=== PATIENT | female | born 1995 | race Caucasian/White ===

== ENCOUNTER → 2017-09-06 | Outpatient (CLI) | payer OTHER ==
--- NOTE | 2017-09-06 13:22 | DIAGNOSTIC IMAGING REPORT ---
R ANKLE MIN 3 VIEWS ROUTINE CLINICAL HISTORY: M25.571 right ankle pain status post trauma COMPARISON: None. DISCUSSION: No fractures or dislocations are visualized. There are no erosive or destructive changes. IMPRESSION: No fractures or dislocations identified. Electronically signed by: David Horner M.D. 09/06/2017 1:21 PM Dictated Date/Time: 09/06/2017 1:21 PM
== END | disposition home or self-care (01) ==
LOC: C.RAD 12:20
PROVIDERS: ATTEND Physician Assistant Medical
DX: M25.571 Pain in right ankle and joints of right foot (principal)

== ENCOUNTER → 2018-03-27 | Outpatient (CLI) | payer OTHER | END | disposition home or self-care (01) | LOC: C.LABBFT 11:14 | PROVIDERS: ATTEND Physician Assistant Medical | DX: N39.0 Urinary tract infection, site not specified (principal); R39.9 Unspecified symptoms and signs involving the genitourinary system ==

== ENCOUNTER → 2018-03-28 | Outpatient (CLI) | payer OTHER | END | disposition home or self-care (01) | LOC: C.LAB1850 11:41 | PROVIDERS: ATTEND Family Medicine | DX: N39.0 Urinary tract infection, site not specified (principal) ==

== ENCOUNTER 2024-06-03 13:25 | Inpatient (IN) ==
[2024-06-03 13:59] LABS: Basophils # (auto) 0.06 K/uL (0.00-0.20); Basophils % (auto) 0.5 %; Eosinophils # (auto) 0.03 K/uL (0.00-0.50); Eosinophils % (auto) 0.2 %; Hematocrit (blood only) 41.8 % (37.0-47.0); Hemoglobin 14.1 g/dl (12.0-16.0); Immature Granulocytes # (auto) 0.06 K/uL (0.01-0.20); Immature Granulocytes % (auto) 0.5 %; Lymphocytes % (auto) 11.6 %; Mean Corpuscular Hemoglobin 29.9 pg (25.0-34.0); Mean Corpuscular Hgb Conc 33.7 g/dL (32.0-36.0); Mean Corpuscular Volume 88.7 fL (80.0-100.0); Mean Platelet Volume 10.8 fL (9.4-12.4); Monocytes # (auto) 1.35 K/uL (0.11-0.59); Monocytes % (auto) 11.2 %; Neutrophils # (auto) 9.19 K/uL (1.40-6.50); Platelet Count 202 K/uL (130-400); RDW Coefficient of Variation 11.6 % (11.5-14.5); Red Blood Count 4.71 M/uL (4.20-5.40); White Blood Count 12.09 K/ul (4.8-10.8)
[2024-06-03 14:19] LABS: Albumin Level 4.3 gm/dl (3.4-5.0); BUN Creatinine Ratio 13.3 (10-20); Creatinine Clr Calc Pharmacy 109.2 ml/min; Globulin 4.3 gm/dl (2.5-4.0); Potassium 3.4 mmol/L (3.5-5.1); Total Protein 8.6 gm/dl (6.0-8.3)
[2024-06-03 14:49] LABS: Appearance Urine Clear (Clear); Bacteria Urine Automated None Seen (None Seen); Bilirubin Urine Negative (Negative); Blood Urine Trace (Negative); Cast Urine Automated 0-2 /lpf (0-2); Color Urine Yellow; Epithelial Cell Urine Auto 0-2 /hpf (0-2); Glucose Urine UA Negative (Negative); Ketones Urine Negative (Negative); Leukocyte Esterase Urine Negative (Negative); Nitrite Urine Negative (Negative); Protein Urine Negative (Negative); RBC Urine Automated 0-2 /hpf (0-2); Specific Gravity Urine 1.006 (1.000-1.030); Urobilinogen Urine Negative (Negative); WBC Urine Automated 0-5 /hpf (0-5)
--- NOTE | 2024-06-03 15:20 | Emergency Department Note ---
Impression & Plan Pneumonia ED Provider Note NAME: ROBLES CALVO AGE: 28 SEX: F : 1995 ARRIVES VIA: Walk-In INFORMANT: Patient ED PROVIDER(S): QUE Lucas, Little Webber DO CHIEF COMPLAINT: Tachycardia, generalized illness HISTORY OF PRESENT ILLNESS: This 28-year-old female patient presents to the emergency department via private vehicle for evaluation of a multitude of symptoms. She reports since Friday she has had chills, shaking, dizziness, and headache. She reports she has been coughing significantly over the last few days. She reports no chest pain, however states some shortness of breath. She reports she has also had bouts of diarrhea, with darkened urine. She does report a history of a DVT, as well as a PE at the age of 21. She states she is noticing numbness in the tips of her fingers, however denies weakness. She also states she has pain in the right flank that occurred last night and lasted for approximately 20 minutes. She is afebrile, she has tachycardia in the 120s. REVIEW OF SYSTEMS: A review of systems was performed with positives and pertinent negatives listed in the history of present illness. All other systems were reviewed and are negative. ALLERGIES: See below MEDICATIONS: See below PMH: See below PHYSICAL EXAM: VITALS: Vitals are noted on the nurse's note and reviewed by myself. Vital signs stable. GENERAL: 28-year-old female, in no acute distress, nondiaphoretic, well- developed well-nourished. SKIN: The skin was without rashes, erythema, edema, or bruising. HEAD: Normocephalic atraumatic. EYES: Pupils equal round and reactive to light and accommodation. Conjunctivae without injection, sclerae without icterus. Extraocular movements intact. NOSE: Patent, turbinates without inflammation or discharge. No sinus tenderness. MOUTH: Mucous membranes moist. Tonsils are not enlarged. Pharynx without erythema or exudate. Uvula midline. Airway patent. Tongue does not deviate. NECK: Supple without nuchal rigidity. No lymphadenopathy. No thyromegaly. Cervical spine is nontender. No JVD. HEART: Sinus tachycardia without murmurs gallops or rubs. LUNGS: RLL coarse lung sounds, clear otherwise. ABDOMEN: Positive bowel sounds x 4. Soft, nontender, without masses or organomegaly. Griffin sign negative. No guarding or rebound tenderness. MUSCULOSKELETAL: No muscle atrophy, erythema, or edema noted. Full range of motion without joint tenderness in all extremities. No tenderness to palpation. Normal gait. Strength 5/5 throughout. NEURO: Patient was alert and oriented to person place and time. No focal neurological deficits. MEDICAL DECISION MAKING: The patient is a 28-year-old female who arrives to the emergency department for evaluation of the above-stated complaint. A saline lock was established, CBC, CMP, D-dimer, Monospot, upper respiratory viral panel, urinalysis, stool culture were obtained. CBC shows a slight leukocytosis of 12.09, with a stable hemoglobin and hematocrit, CMP shows slight hypokalemia at 3.4, and hyponatremia at 134, D-dimer 1420, Monospot negative, upper respiratory BioFire panel negative. CT imaging of the chest was obtained to rule out pulmonary embolus, which showed no sign of PE, however there is a significant right lower lobe pneumonia. The patient was provided 2 L of normal saline, in an attempt to reduce her tachycardia. The patient was provided oral amoxicillin, as well as azithromycin with initial intentions of discharging the patient home for follow-up on an outpatient basis. Curb 65 score 0. After reevaluation from IV fluids, the patient remains persistently tachycardic. I spoke with her regarding admission versus discharge, and she was agreeable to admission. I do believe the patient requires further workup regarding the persistent tachycardia, and likely IV antibiotics for the significant right lower lobe pneumonia. I spoke with case management who [facility] agree to see the patient regarding admission and accept her under his care. Please refer to his documentation for further patient workup and treatment. DIFFERENTIAL DIAGNOSIS: Reactive airway disease, pneumonia, pneumothorax, COPD, CHF, infections, cardiac ischemia, pulmonary embolism, musculoskeletal, gastrointestinal, as well as other pathologies. Continuous director of cardiac cath lab: Order was placed for continuous director of cardiac cath lab. Patient was placed on the director of cardiac cath lab. Patient was noted to be in sinus tachycardia at an initial rate of 120 bpm. The chart was completed utilizing SLID voice recognition software. Grammatical errors, random word insertions, pronoun errors, and incomplete sentences are an occasional consequence of this system due to software limitations, ambient noise, and hardware issues. Any formal questions or concerns about the content, text, or information contained within the body of this dictation should be directly addressed to the physician for clarification. Past Med/Surg History Problem List Pneumonia (Acute) Anticoagulated on heparin Encounter for health maintenance examination in adult Family history of colorectal cancer Father, diagnosed at age 39yo. UTI (urinary tract infection) History of pulmonary embolism First diagnosed 07/2019 (completed 6M eliquis). Thought to be caused by oral control, now discontinued. History of DVT (deep vein thrombosis) First diagnosed 07/2019 (completed 6M eliquis). Thought to be caused by oral control, now discontinued. Chronic pruritus Lethargy (Acute) Numbness and tingling of both lower extremities (Acute) Numbness and tingling of both upper extremities (Acute) Family history of blood clots Foot laceration (Acute) Medical History Family history of diabetes mellitus Family history of pulmonary embolism Father Surgical History No pertinent past surgical history Family History Mother Alcohol abuse Father Hypertension Grandfather Diabetes Grandmother (Maternal) Breast cancer Denies family history of Ovarian cancer Prostate cancer Colorectal cancer Social History Smoking Status: Never smoker Second Hand Exposure: No; Do You Dip or Chew Tobacco: No; Hx Alcohol Use: Yes Alcohol type: beer Alcohol type Comment: cider Alcohol Intake Frequency: 2-3 x/Week Hx Substance Use: Yes Non-Prescribed Medications: Marijuana Non-Prescribed Medications Comment: process of gettin medical marijuana card Last Used Substance: Days (ago) Last Used Substance Other:: 1 day ago Preferred Language: Luxembourgish Beliefs That Will Affect Care: None marital status: Single Current Living Situation: Other Current Living Situation Comment: roommate current occupational status: employed and student 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 [employer] Feels Safe at Home: Yes Childhood Exposure to Second-Hand Smoke: Yes Dental Care, Regularly: Yes Physical Activity Frequency: Daily Seatbelt Use: always Sunscreen Use: Yes Assistive Devices: Glasses Allergies Allergies Allergy/AdvReac Type Severity Reaction Status Date / Time No Known Allergies Allergy Verified 06/03/24 17:41 Home Meds Home Medications Medication Instructions Recorded Confirmed lamotrigine 25 mg tablet 50 mg PO DAILY 06/03/24 06/03/24 prednisone 10 mg tablet 10 mg PO UD 06/03/24 06/03/24 Previous Rx's Medication Instructions Recorded amoxicillin 500 mg capsule 1,000 mg (2 x 500 mg) PO Q8H 5 06/03/24 days #30 caps azithromycin 250 mg tablet 250 mg PO DAILY 4 days #4 tabs 06/03/24 Results & Data (ED) Vital Signs Vital Signs - 24 hr 06/03/24 13:32 06/03/24 16:43 06/03/24 16:48 Temperature 36.9 C Temperature Source Temporal Artery Scan Pulse Rate 120 H 115 H Pulse Rate [Right Finger] Pulse Rhythm Regular Pulse Strength Normal Respiratory Rate 20 Respiratory Effort / Characteristics Non-Labored Spontaneous Respiratory Depth Normal Respiratory Pattern Blood Pressure 139/86 Blood Pressure [Right Arm] Blood Pressure Mean 103 Blood Pressure Mean [Right Arm] Blood Pressure Position Sitting Pulse Oximetry 96 99 Oxygen Delivery Method Room Air Room Air Sepsis Recent Fever Within 48 Hours No Sepsis New/Unexplained Change in Mental Status N/A Sepsis Action Taken by Nursing No Action Required 06/03/24 16:49 06/03/24 18:30 Temperature Temperature Source Pulse Rate Pulse Rate [Right Finger] 112 H 112 H Pulse Rhythm Pulse Strength Respiratory Rate 24 18 Respiratory Effort / Characteristics Non-Labored Spontaneous Non-Labored Spontaneous Respiratory Depth Normal Normal Respiratory Pattern Regular Regular Blood Pressure Blood Pressure [Right Arm] 113/87 121/85 Blood Pressure Mean Blood Pressure Mean [Right Arm] 95 97 Blood Pressure Position Pulse Oximetry 98 100 Oxygen Delivery Method Room Air Room Air Sepsis Recent Fever Within 48 Hours Sepsis New/Unexplained Change in Mental Status Sepsis Action Taken by Long-Term Medications Current Medication List: was personally reviewed by me Laboratory Data Attestation: I reviewed the patient's lab results. 06/03/24 13:38 06/03/24 13:38 Lab Results 06/03/24 06/03/24 06/03/24 Range/Units 13:38 14:34 16:15 WBC 12.09 H (4.8-10.8) K/ul RBC 4.71 (4.20-5.40) M/uL Hgb 14.1 (12.0-16.0) g/dl Hct 41.8 (37.0-47.0) % MCV 88.7 (80.0-100.0) fL MCH 29.9 (25.0-34.0) pg MCHC 33.7 (32.0-36.0) g/dL RDW Std Deviation 37.0 (36.4-46.3) fL RDW Coeff of Teresa 11.6 (11.5-14.5) % Plt Count 202 (130-400) K/uL MPV 10.8 (9.4-12.4) fL Immature Gran % (Auto) 0.5 % Neut % (Auto) 76.0 % Lymph % (Auto) 11.6 % Sterling % (Auto) 11.2 % Eos % (Auto) 0.2 % Baso % (Auto) 0.5 % Neut # (Auto) 9.19 H (1.40-6.50) K/uL Lymph # (Auto) 1.40 (1.20-3.40) K/uL Sterling # (Auto) 1.35 H (0.11-0.59) K/uL Eos # (Auto) 0.03 (0.00-0.50) K/uL Baso # (Auto) 0.06 (0.00-0.20) K/uL Immature Gran # (Auto) 0.06 (0.01-0.20) K/uL D-Dimer 1420 H* (0-500) ug/L FEU Sodium 134 L (136-145) mmol/L Potassium 3.4 L (3.5-5.1) mmol/L Chloride 100 (98-107) mmol/L Carbon Dioxide 26 (21-32) mmol/L Anion Gap 8 (3-11) BUN 11 (6-23) mg/dl Creatinine 0.83 (0.6-1.2) mg/dl Est Cr Clr Drug Dosing 109.2 ml/min eGFR 98.42 BUN/Creatinine Ratio 13.3 (10-20) Glucose 115 H (70-99(Fasting)) mg/dl Calcium 9.0 (8.6-10.3) mg/dl Total Bilirubin 1.0 (0.2-1.0) mg/dl AST 34 (13-39) U/L ALT 72 H (7-52) U/L Alkaline Phosphatase 60 (34-104) U/L Total Protein 8.6 H (6.0-8.3) gm/dl Albumin 4.3 (3.4-5.0) gm/dl Globulin 4.3 H (2.5-4.0) gm/dl Albumin/Globulin Ratio 1.0 (0.9-2) Urine Color Yellow Urine Appearance Clear (Clear) Urine pH 6.0 (4.5-7.5) Ur Specific [place] 1.006 (1.000-1.030) Urine Protein Negative (Negative) Urine Glucose (UA) Negative (Negative) Urine Ketones Negative (Negative) Urine Blood Trace H (Negative) Urine Nitrite Negative (Negative) Urine Bilirubin Negative (Negative) Urine Urobilinogen Negative (Negative) Ur Leukocyte Esterase Negative (Negative) Urine WBC (Auto) 0-5 (0-5) /hpf Urine RBC (Auto) 0-2 (0-2) /hpf U Hyaline Cast (Auto) 0-2 (0-2) /lpf U Epithel Cells (Auto) 0-2 (0-2) /hpf Urine Bacteria (Auto) None Seen (None Seen) POC Ur Test NEG (NEG) Adenovirus (PCR) Not Detected (NotDetected) B. pertussis DNA (PCR) Not Detected (NotDetected) B.parapertussis DNA PCR Not Detected (NotDetected) C. pneumoniae DNA (PCR) Not Detected (NotDetected) Coronavirus OC43 (PCR) Not Detected (NotDetected) Coronavirus HKU1 (PCR) Not Detected (NotDetected) Coronavirus 229E (PCR) Not Detected (NotDetected) SARS-CoV-2 (PCR) Not Detected (NotDetected) Coronavirus NL63 (PCR) Not Detected (NotDetected) Monoscreen Negative (Negative) Human Metapneumovir PCR Not Detected (NotDetected) Influenza Type A (PCR) Not Detected (NotDetected) Influenza Type B (PCR) Not Detected (NotDetected) M. pneumoniae (PCR) Not Detected (NotDetected) Parainfluenza 1 (PCR) Not Detected (NotDetected) Parainfluenza 2 (PCR) Not Detected (NotDetected) Parainfluenza 3 (PCR) Not Detected (NotDetected) Parainfluenza 4 (PCR) Not Detected (NotDetected) RSV (PCR) Not Detected (NotDetected) Entero/Rhino (PCR) Not Detected (NotDetected) Administered Medications Discontinued Medications Amoxicillin (Amoxicillin 500 Mg Cap) 1,000 mg PO NOW STA; Protocol Stop: 06/03/24 17:20 Last Admin: 06/03/24 18:12 Dose: 1,000 mg Documented By: RENA Azithromycin (Azithromycin 250 Mg Tab) 500 mg PO NOW ONE Stop: 06/03/24 17:20 Last Admin: 06/03/24 18:11 Dose: 500 mg Documented By: RENA Sodium Chloride (Nss) 1,000 mls @ 999 mls/hr IV .Q1H1M ONE Stop: 06/03/24 16:12 Last Infusion: 06/03/24 18:11 Dose: Infused Documented By: Admin: 06/03/24 16:13 Dose: 999 mls/hr Documented By: HAYDEE Sodium Chloride (Nss) 1,000 mls @ 999 mls/hr IV .Q1H1M ONE Stop: 06/03/24 17:29 Last Infusion: 06/03/24 18:21 Dose: Infused Documented By: Admin: 06/03/24 16:56 Dose: 999 mls/hr Documented By: RENA Ioversol (Optiray 320 125ml) 117 ml IV ONCE ONE Stop: 06/03/24 15:44 Last Admin: 06/03/24 15:43 Dose: 117 ml Documented By: MOOSE Imaging Data Attestation: I personally reviewed and interpreted this imaging study as follows: Radiologist's Impression: Abdomen/Pelvis CT 06/03/24 15:[address] WITH IV CONTRAST HISTORY: Acute right-sided flank pain flank pain TECHNIQUE: Multiaxial CT images of the abdomen and pelvis were performed following the IV administration of 117 cc of Optiray, A dose lowering technique was utilized adhering to the principles of ALARA. COMPARISON STUDY: CTA chest of same day FINDINGS: No pneumonia of the right lower lobe with air bronchograms. No free air. Spleen is upper limits of normal in size at 13.9 cm. The liver, gallbladder, pancreas, kidneys, and adrenal glands are within normal limits. No bowel wall thickening or obstruction. Normal appendix. The pelvic organs are unremarkable. A radiodense, shape device is present within the vagina. Mild lumbar levoscoliosis. No suspicious lytic or blastic osseous lesions. IMPRESSION: 1. Right lower lobe pneumonia. 2. No bowel obstruction or bowel wall thickening. Normal appendix. 3. Borderline enlarged spleen. ACT 112: Negative or not required by law. The above report was generated using voice recognition software. It may contain grammatical, syntax or spelling errors. Electronically signed by: Phil Pedraza M.D. 06/03/2024 4:29 PM Chest X-Ray 06/03/24 15:08 XR chest 2V PA/lateral CLINICAL HISTORY: r/o pnx COMPARISON STUDY: Chest CT performed earlier today. FINDINGS: Lung volumes are normal. Right lower lobe consolidation is present. There is no pneumothorax or pleural effusion. Cardiac size is normal. Mediastinal contours are normal. There is no evidence for pulmonary edema. IMPRESSION: Right lower lobe consolidation consistent with pneumonia. ACT 112: Negative or not required by law. Electronically signed by: Francesco Del Toro M.D. 06/03/2024 4:40 PM Chest CTA 06/03/24 15:20 CT ANGIOGRAPHY OF THE CHEST, PULMONARY EMBOLUS PROTOCOL CLINICAL HISTORY: Chills. Fever. COMPARISON STUDY: Chest CT July 16, 2019. TECHNIQUE: Following IV administration of 117 mL of Optiray, helical axial images of the chest were obtained utilizing the pulmonary embolus protocol. Maximal intensity projections and sagittal and coronal reformats were viewed on an independent 3D workstation. IV contrast was administered without complication. Automated exposure control was utilized for the study. A dose lowering technique was utilized adhering to the principles of ALARA. CT DOSE: 1671.07 mGy.cm FINDINGS: No pulmonary emboli are identified although segmental and subsegmental vessels are suboptimally assessed due to suboptimal opacification. There is no thoracic aortic dissection. The size of the heart is normal. There are multiple mildly enlarged right hilar lymph nodes. Index right hilar node on image 124 of 213 measures 2 x 1.4 cm. There is extensive right lower lobe consolidation. No central obstructing mass is present. There is no cavitation. The left lung is clear. There is no pneumothorax or pleural effusion. The spleen is mildly enlarged. IMPRESSION: 1. No pulmonary emboli identified although segmental and subsegmental pulmonary arteries suboptimally assessed. 2. Extensive right lower lobe consolidation suggestive of pneumonia. Radiographic follow-up to ensure resolution is recommended. 3. Mildly enlarged right hilar lymph nodes which are likely reactive. ACT 112: Negative or not required by law. Electronically signed by: Francesco Del Toro M.D. 06/03/2024 4:13 PM Discharge Plan Visit Data Chief Complaint: Illness Stated Complaint: CHILLS, SWEATS, HEADACHE, SHARP PAIN IN BACK ON R ED Provider: [facility] ED Midlevel Provider: Sunshine Beard Discharge Problem: Pneumonia Patient Disposition: Home - Self-Care Condition: Good Discharge Instructions Activity Restrictions/Additional Instructions: You were evaluated in the emergency department for evaluation of right back pain, tachycardia, and chills. CT imaging of the chest is negative for blood clot, however it does show a significant right lower lobe pneumonia. CT imaging of the abdomen and pelvis is negative. Lab work is all reassuring, EKG is as well. You were provided oral amoxicillin, as well as azithromycin here in the emergency department. The remainder the prescriptions were sent to your pharmacy. Please take the entire course of both of these medications. You may take over the counter Tylenol 650mg and Motrin 400mg, every 6 hours as needed for pain. Alternating these medications every 3 hours is most effective for pain control. For example: Tylenol 9am, Motrin 12pm, Tylenol 3pm, Motrin 6pm, etc.. Please only take these medications if you have not been previously informed you should not take them by another provider. Please follow-up with your primary care provider in 1 month for repeat chest x- ray to ensure resolution of the pneumonia. Return to the emergency department for worsening of your current symptoms, or any new concerning signs or symptoms. Thank you for allowing me to participate in your care. Forms Stand Alone Forms: [facility], Important Visit Information Prescriptions Prescriptions: New amoxicillin 500 mg capsule 1,000 mg PO Q8H 5 Days Qty: 30 0RF azithromycin 250 mg tablet 250 mg PO DAILY 4 Days Qty: 4 0RF Rx Instructions: 250 mg orally; No Action prednisone 10 mg tablet 10 mg PO UD lamotrigine 25 mg tablet 50 mg PO DAILY Referrals Referrals: Love,Katherin L., CUSTOMER SERVICE TELLER [Primary Care Provider] - Discharge Problem: Pneumonia Qualifiers: Pneumonia type: due to unspecified organism Laterality: right Lung location: l ower lobe of lung Qualified Code(s): J18.9 - Pneumonia, unspecified organism
[2024-06-03] MEDS: OPTIRAY 320 125ml IV ONE (15:43)
[2024-06-03 15:56] LABS: D Dimer 1420 ug/L FEU (0-500)
[2024-06-03] MEDS: SODIUM CHLORIDE 0.9% 1,000 ML IV ONE ×2 (16:13→16:56)
--- NOTE | 2024-06-03 16:14 | CT Scan Report ---
CT ANGIOGRAPHY OF THE CHEST, PULMONARY EMBOLUS PROTOCOL CLINICAL HISTORY: Chills. Fever. COMPARISON STUDY: Chest CT July 16, 2019. TECHNIQUE: Following IV administration of 117 mL of Optiray, helical axial images of the chest were o btained utilizing the pulmonary embolus protocol. Maximal intensity projections and sagittal and cor onal reformats were viewed on an independent 3D workstation. IV contrast was administered without co mplication. Automated exposure control was utilized for the study. A dose lowering technique was ut ilized adhering to the principles of ALARA. CT DOSE: 1671.07 mGy.cm FINDINGS: No pulmonary emboli are identified although segmental and subsegmental vessels are subopti abby assessed due to suboptimal opacification. There is no thoracic aortic dissection. The size of t he heart is normal. There are multiple mildly enlarged right hilar lymph nodes. Index right hilar nod e on image 124 of 213 measures 2 x 1.4 cm. There is extensive right lower lobe consolidation. No cent ral obstructing mass is present. There is no cavitation. The left lung is clear. There is no pneumoth orax or pleural effusion. The spleen is mildly enlarged. IMPRESSION: 1. No pulmonary emboli identified although segmental and subsegmental pulmonary arteries suboptimally assessed. 2. Extensive right lower lobe consolidation suggestive of pneumonia. Radiographic follow-up to ensure resolution is recommended. 3. Mildly enlarged right hilar lymph nodes which are likely reactive. ACT 112: Negative or not required by law. Electronically signed by: Francesco Del Toro M.D. 06/03/2024 4:13 PM
--- NOTE | 2024-06-03 16:31 | CT Scan Report ---
ABDOMEN AND PELVIS CT WITH IV CONTRAST HISTORY: Acute right-sided flank pain flank pain TECHNIQUE: Multiaxial CT images of the abdomen and pelvis were performed following the IV administrat ion of 117 cc of Optiray, A dose lowering technique was utilized adhering to the principles of ALARA . COMPARISON STUDY: CTA chest of same day FINDINGS: No pneumonia of the right lower lobe with air bronchograms. No free air. Spleen is upper limits of normal in size at 13.9 cm. The liver, gallbladder, pancreas, kidneys, and a drenal glands are within normal limits. No bowel wall thickening or obstruction. Normal appendix. The pelvic organs are unremarkable. A radiodense, shape device is present within the vagina. Mild lumbar levoscoliosis. No suspicious lytic or blastic osseous lesions. IMPRESSION: 1. Right lower lobe pneumonia. 2. No bowel obstruction or bowel wall thickening. Normal appendix. 3. Borderline enlarged spleen. ACT 112: Negative or not required by law. The above report was generated using voice recognition software. It may contain grammatical, syntax o r spelling errors. Electronically signed by: Phil Pedraza M.D. 06/03/2024 4:29 PM
--- NOTE | 2024-06-03 16:41 | XRay Report ---
XR chest 2V PA/lateral CLINICAL HISTORY: r/o pnx COMPARISON STUDY: Chest CT performed earlier today. FINDINGS: Lung volumes are normal. Right lower lobe consolidation is present. There is no pneumothora x or pleural effusion. Cardiac size is normal. Mediastinal contours are normal. There is no evidence for pulmonary edema. IMPRESSION: Right lower lobe consolidation consistent with pneumonia. ACT 112: Negative or not required by law. Electronically signed by: Francesco Del Toro M.D. 06/03/2024 4:40 PM
--- NOTE | 2024-06-03 16:43 | Electrocardiogram Report ---
Test Reason : Blood Pressure : */* mmHG Vent. Rate : 111 BPM Atrial Rate : 111 BPM P-R Int : 116 ms QRS Dur : 80 ms QT Int : 308 ms P-R-T Axes : 43 28 2 degrees QTcB Int : 418 ms Sinus tachycardia Abnormal ECG When compared with ECG of 16-Jul-2019 20:32, No significant change was found Confirmed by Edilberto Ball ([id number]) on 06/03/2024 4:43:42 PM Referred By: REFERRED SELF Confirmed By: Edilberto Ball
[2024-06-03 17:12] LABS: Adenovirus PCR Not Detected (NotDetected); Bordetella parapertussis PCR Not Detected (NotDetected); Bordetella pertussis PCR Not Detected (NotDetected); Chlamydia pneumoniae PCR Not Detected (NotDetected); Coronavirus 229E PCR Not Detected (NotDetected); Coronavirus CoV-2 (COVID19)PCR Not Detected (NotDetected); Coronavirus HKU1 PCR Not Detected (NotDetected); Coronavirus NL63 PCR Not Detected (NotDetected); Coronavirus OC43PCR Not Detected (NotDetected); Human Metapneumovirus PCR Not Detected (NotDetected); Influenza A PCR Not Detected (NotDetected); Influenza B PCR Not Detected (NotDetected); Mycoplasma pneumoniae PCR Not Detected (NotDetected); Parainfluenza Virus 1 PCR Not Detected (NotDetected); Parainfluenza Virus 2 PCR Not Detected (NotDetected); Parainfluenza Virus 3 PCR Not Detected (NotDetected); Parainfluenza Virus 4 PCR Not Detected (NotDetected); Respiratory Syncytial VirusPCR Not Detected (NotDetected); Rhinovirus/Enterovirus PCR Not Detected (NotDetected)
[2024-06-03] MEDS: AZITHROMYCIN 250 MG TAB PO ONE (18:11)
[2024-06-03] MEDS: AMOXICILLIN 500 MG CAP PO STA ×2 (18:12→20:03)
--- NOTE | 2024-06-03 19:48 | History & Physical Report ---
Date of Service June 03, 2024 Assessment & Plan (1) Sepsis: Plan: Secondary to community-acquired pneumonia history of provoked PE/DVT secondary to hormonal Rx status post anticoagulation anxiety/mood disorder, stable Hyperglycemia ro DM Admit to medical telemetry CS, ceftriaxone, doxycycline Lidoderm patch, NSAID for pleurisy Check hemoglobin A1c DVT prophylaxis. Lovenox subcu Full code Text document was generated using [employer] voice recognition software. It may contain grammatical or spelling errors. Kindly contact undersigned for clarification of any documentation item in question. History of Present Illness Chief Complaint: Cough, chest pain, SOB Primary Care Provider: QUE Matias History obtained from patient and records. Medical history significant for history of provoked PE/DVT secondary to hormonal Rx status post anticoagulation, GERD, cervical dysplasia, anxiety/mood disorder. 4 days history of bodyaches, chills, sweating headache and dizziness symptoms. Heartbeat fast at home. Cough symptoms which patient is not able to expectorate fully. Pleuritic right-sided chest pain. Denies aspiration. Possible sick contacts at home. Loose stools noted at home. Amoxicillin and Z-Panda administered at the ER. 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 Allergies Allergy/AdvReac Type Severity Reaction Status Date / Time No Known Allergies Allergy Verified 06/03/24 17:41 Home Medications Medication Instructions Recorded Confirmed Type amoxicillin 500 mg capsule 1,000 mg (2 x 500 mg) PO Q8H 5 06/03/24 Rx days #30 caps azithromycin 250 mg tablet 250 mg PO DAILY 4 days #4 tabs 06/03/24 06/03/24 Rx lamotrigine 25 mg tablet 50 mg PO DAILY 06/03/24 06/03/24 History prednisone 10 mg tablet 10 mg PO UD 06/03/24 06/03/24 History Past Med/Surg History Problem List (Updated 06/04/24 @ 03:52 by Jarett Joyce MD) Sepsis Pneumonia (Acute) Anticoagulated on heparin Encounter for health maintenance examination in adult Family history of colorectal cancer Father, diagnosed at age 39yo. UTI (urinary tract infection) History of pulmonary embolism First diagnosed 07/2019 (completed 6M eliquis). Thought to be caused by oral control, now discontinued. History of DVT (deep vein thrombosis) First diagnosed 07/2019 (completed 6M eliquis). Thought to be caused by oral control, now discontinued. Chronic pruritus Lethargy (Acute) Numbness and tingling of both lower extremities (Acute) Numbness and tingling of both upper extremities (Acute) Family history of blood clots Foot laceration (Acute) Medical History Family history of diabetes mellitus Family history of pulmonary embolism Father Surgical History No pertinent past surgical history Family History Mother Alcohol abuse Father Hypertension Grandfather Diabetes Grandmother (Maternal) Breast cancer Denies family history of Ovarian cancer Prostate cancer Colorectal cancer Social History Smoking Status: Never smoker Second Hand Exposure: No; Do You Dip or Chew Tobacco: No; Hx Alcohol Use: Yes Alcohol type: hard liquor Alcohol type Comment: cider Alcohol Intake Frequency: 2-3 x/Week Hx Substance Use: Yes Non-Prescribed Medications: Marijuana Non-Prescribed Medications Comment: process of gettin medical marijuana card Last Used Substance: Days (ago) Last Used Substance Other:: 1 day ago Substance Use Type Other:: Occasionak Preferred Language: Haitian Communication Ability: Effective 3D Technologist Required: No Beliefs That Will Affect Care: None marital status: Single Current Living Situation: Significant Other Current Living Situation Comment: roommate current occupational status: employed and student 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 [employer] Other Information That Helps Us Care for You: No Feels Safe at Home: Yes Safety Concerns: Feels Safe At This Time Childhood Exposure to Second-Hand Smoke: Yes Dental Care, Regularly: Yes Physical Activity Frequency: Daily Seatbelt Use: always Sunscreen Use: Yes Assistive Devices: None Review of Systems Review of Systems: As per HPI, all other systems reviewed and negative Physical Exam Physical Exam: GENERAL: Comfortable, pleasant, obese, no respiratory distress SKIN: Normal color, warm HEENT: [place] palpebral conjunctivae, no ptosis, dry buccal mucosa NECK : Supple, no tenderness CHEST : Decreased breath sounds, minimal right chest wall tenderness HEART : Tachycardic, no obvious murmurs ABDOMEN: Some distention, nontender EXTREMITIES : Minimal LE swelling, no LE tenderness, no other conspicuous deformities noted NEUROLOGIC : Coherent, no facial asymmetry, no other gross focality Results & Data Results & Data Vital Signs (Past 12 Hours) Vital Signs Temp Pulse Pulse Resp BP BP Pulse Ox 06/03/24 18:30 112 H 18 121/85 100 06/03/24 16:49 112 H 24 113/87 98 06/03/24 16:48 99 06/03/24 16:43 115 H 06/03/24 13:32 36.9 C 120 H 20 139/86 96 O2 Del Method 06/03/24 18:30 Room Air 06/03/24 16:49 Room Air 06/03/24 16:48 Room Air 06/03/24 16:43 06/03/24 13:32 Room Air Laboratory Results Laboratory Results WBC 12.09 K/ul (4.8-10.8) H 06/03/24 13:38 RBC 4.71 M/uL (4.20-5.40) 06/03/24 13:38 Hgb 14.1 g/dl (12.0-16.0) 06/03/24 13:38 Hct 41.8 % (37.0-47.0) 06/03/24 13:38 MCV 88.7 fL (80.0-100.0) 06/03/24 13:38 MCH 29.9 pg (25.0-34.0) 06/03/24 13:38 MCHC 33.7 g/dL (32.0-36.0) 06/03/24 13:38 RDW Std Deviation 37.0 fL (36.4-46.3) 06/03/24 13:38 RDW Coeff of Teresa 11.6 % (11.5-14.5) 06/03/24 13:38 Plt Count 202 K/uL (130-400) 06/03/24 13:38 MPV 10.8 fL (9.4-12.4) 06/03/24 13:38 Immature Gran % (Auto) 0.5 % 06/03/24 13:38 Neut % (Auto) 76.0 % 06/03/24 13:38 Lymph % (Auto) 11.6 % 06/03/24 13:38 Izard % (Auto) 11.2 % 06/03/24 13:38 Eos % (Auto) 0.2 % 06/03/24 13:38 Baso % (Auto) 0.5 % 06/03/24 13:38 Neut # (Auto) 9.19 K/uL (1.40-6.50) H 06/03/24 13:38 Lymph # (Auto) 1.40 K/uL (1.20-3.40) 06/03/24 13:38 Izard # (Auto) 1.35 K/uL (0.11-0.59) H 06/03/24 13:38 Eos # (Auto) 0.03 K/uL (0.00-0.50) 06/03/24 13:38 Baso # (Auto) 0.06 K/uL (0.00-0.20) 06/03/24 13:38 Immature Gran # (Auto) 0.06 K/uL (0.01-0.20) 06/03/24 13:38 D-Dimer 1420 ug/L FEU (0-500) H* 06/03/24 13:38 Sodium 134 mmol/L (136-145) L 06/03/24 13:38 Potassium 3.4 mmol/L (3.5-5.1) L 06/03/24 13:38 Chloride 100 mmol/L (98-107) 06/03/24 13:38 Carbon Dioxide 26 mmol/L (21-32) 06/03/24 13:38 Anion Gap 8 (3-11) 06/03/24 13:38 BUN 11 mg/dl (6-23) 06/03/24 13:38 Creatinine 0.83 mg/dl (0.6-1.2) 06/03/24 13:38 Est Cr Clr Drug Dosing 109.2 ml/min 06/03/24 13:38 eGFR 98.42 06/03/24 13:38 BUN/Creatinine Ratio 13.3 (10-20) 06/03/24 13:38 Glucose 115 mg/dl (70-99(Fasting)) H 06/03/24 13:38 Calcium 9.0 mg/dl (8.6-10.3) 06/03/24 13:38 Total Bilirubin 1.0 mg/dl (0.2-1.0) 06/03/24 13:38 AST 34 U/L (13-39) 06/03/24 13:38 ALT 72 U/L (7-52) H 06/03/24 13:38 Alkaline Phosphatase 60 U/L (34-104) 06/03/24 13:38 Total Protein 8.6 gm/dl (6.0-8.3) H 06/03/24 13:38 Albumin 4.3 gm/dl (3.4-5.0) 06/03/24 13:38 Globulin 4.3 gm/dl (2.5-4.0) H 06/03/24 13:38 Albumin/Globulin Ratio 1.0 (0.9-2) 06/03/24 13:38 Urine Color Yellow 06/03/24 14:34 Urine Appearance Clear (Clear) 06/03/24 14:34 Urine pH 6.0 (4.5-7.5) 06/03/24 14:34 Ur Specific [place] 1.006 (1.000-1.030) 06/03/24 14:34 Urine Protein Negative (Negative) 06/03/24 14:34 Urine Glucose (UA) Negative (Negative) 06/03/24 14:34 Urine Ketones Negative (Negative) 06/03/24 14:34 Urine Blood Trace (Negative) H 06/03/24 14:34 Urine Nitrite Negative (Negative) 06/03/24 14:34 Urine Bilirubin Negative (Negative) 06/03/24 14:34 Urine Urobilinogen Negative (Negative) 06/03/24 14:34 Ur Leukocyte Esterase Negative (Negative) 06/03/24 14:34 Urine WBC (Auto) 0-5 /hpf (0-5) 06/03/24 14:34 Urine RBC (Auto) 0-2 /hpf (0-2) 06/03/24 14:34 U Hyaline Cast (Auto) 0-2 /lpf (0-2) 06/03/24 14:34 U Epithel Cells (Auto) 0-2 /hpf (0-2) 06/03/24 14:34 Urine Bacteria (Auto) None Seen (None Seen) 06/03/24 14:34 POC Ur Test NEG (NEG) 06/03/24 14:34 Adenovirus (PCR) Not Detected (NotDetected) 06/03/24 16:15 B. pertussis DNA (PCR) Not Detected (NotDetected) 06/03/24 16:15 B.parapertussis DNA PCR Not Detected (NotDetected) 06/03/24 16:15 C. pneumoniae DNA (PCR) Not Detected (NotDetected) 06/03/24 16:15 Coronavirus OC43 (PCR) Not Detected (NotDetected) 06/03/24 16:15 Coronavirus HKU1 (PCR) Not Detected (NotDetected) 06/03/24 16:15 Coronavirus 229E (PCR) Not Detected (NotDetected) 06/03/24 16:15 SARS-CoV-2 (PCR) Not Detected (NotDetected) 06/03/24 16:15 Coronavirus NL63 (PCR) Not Detected (NotDetected) 06/03/24 16:15 Monoscreen Negative (Negative) 06/03/24 13:38 Human Metapneumovir PCR Not Detected (NotDetected) 06/03/24 16:15 Influenza Type A (PCR) Not Detected (NotDetected) 06/03/24 16:15 Influenza Type B (PCR) Not Detected (NotDetected) 06/03/24 16:15 M. pneumoniae (PCR) Not Detected (NotDetected) 06/03/24 16:15 Parainfluenza 1 (PCR) Not Detected (NotDetected) 06/03/24 16:15 Parainfluenza 2 (PCR) Not Detected (NotDetected) 06/03/24 16:15 Parainfluenza 3 (PCR) Not Detected (NotDetected) 06/03/24 16:15 Parainfluenza 4 (PCR) Not Detected (NotDetected) 06/03/24 16:15 RSV (PCR) Not Detected (NotDetected) 06/03/24 16:15 Entero/Rhino (PCR) Not Detected (NotDetected) 06/03/24 16:15 Impressions Abdomen/Pelvis CT 06/03/24 15:[address] WITH IV CONTRAST HISTORY: Acute right-sided flank pain flank pain TECHNIQUE: Multiaxial CT images of the abdomen and pelvis were performed following the IV administration of 117 cc of Optiray, A dose lowering technique was utilized adhering to the principles of ALARA. COMPARISON STUDY: CTA chest of same day FINDINGS: No pneumonia of the right lower lobe with air bronchograms. No free air. Spleen is upper limits of normal in size at 13.9 cm. The liver, gallbladder, pancreas, kidneys, and adrenal glands are within normal limits. No bowel wall thickening or obstruction. Normal appendix. The pelvic organs are unremarkable. A radiodense, shape device is present within the vagina. Mild lumbar levoscoliosis. No suspicious lytic or blastic osseous lesions. IMPRESSION: 1. Right lower lobe pneumonia. 2. No bowel obstruction or bowel wall thickening. Normal appendix. 3. Borderline enlarged spleen. ACT 112: Negative or not required by law. The above report was generated using voice recognition software. It may contain grammatical, syntax or spelling errors. Electronically signed by: Phil Pedraza M.D. 06/03/2024 4:29 PM Chest X-Ray 06/03/24 15:08 XR chest 2V PA/lateral CLINICAL HISTORY: r/o pnx COMPARISON STUDY: Chest CT performed earlier today. FINDINGS: Lung volumes are normal. Right lower lobe consolidation is present. There is no pneumothorax or pleural effusion. Cardiac size is normal. Mediastinal contours are normal. There is no evidence for pulmonary edema. IMPRESSION: Right lower lobe consolidation consistent with pneumonia. ACT 112: Negative or not required by law. Electronically signed by: Francesco Del Toro M.D. 06/03/2024 4:40 PM Chest CTA 06/03/24 15:20 CT ANGIOGRAPHY OF THE CHEST, PULMONARY EMBOLUS PROTOCOL CLINICAL HISTORY: Chills. Fever. COMPARISON STUDY: Chest CT July 16, 2019. TECHNIQUE: Following IV administration of 117 mL of Optiray, helical axial images of the chest were obtained utilizing the pulmonary embolus protocol. Maximal intensity projections and sagittal and coronal reformats were viewed on an independent 3D workstation. IV contrast was administered without complication. Automated exposure control was utilized for the study. A dose lowering technique was utilized adhering to the principles of ALARA. CT DOSE: 1671.07 mGy.cm FINDINGS: No pulmonary emboli are identified although segmental and subsegmental vessels are suboptimally assessed due to suboptimal opacification. There is no thoracic aortic dissection. The size of the heart is normal. There are multiple mildly enlarged right hilar lymph nodes. Index right hilar node on image 124 of 213 measures 2 x 1.4 cm. There is extensive right lower lobe consolidation. No central obstructing mass is present. There is no cavitation. The left lung is clear. There is no pneumothorax or pleural effusion. The spleen is mildly enlarged. IMPRESSION: 1. No pulmonary emboli identified although segmental and subsegmental pulmonary arteries suboptimally assessed. 2. Extensive right lower lobe consolidation suggestive of pneumonia. Radiographic follow-up to ensure resolution is recommended. 3. Mildly enlarged right hilar lymph nodes which are likely reactive. ACT 112: Negative or not required by law. Electronically signed by: Francesco Del Toro M.D. 06/03/2024 4:13 PM Diagnostic Findings EKG as per my interpretation : rate 110, sinus tachycardia, normal axis, nonspecific T wave abnormalities
[2024-06-03] MEDS: POTASSIUM CHLORIDE PWD 20 MEQ PACK PO STA (20:14)
[2024-06-03] MEDS: ACETAMINOPHEN 1,000 MG/100 ML VIAL IV STA (20:14)
[2024-06-03] MEDS ORDERED: hydrOXYzine HCl 25 MG TAB PO PRN (20:24)
[2024-06-03] MEDS ORDERED: PROMETHAZINE 12.5 MG/50.5 ML BAG IV PRN (20:24)
[2024-06-03] MEDS ORDERED: oxyCODONE HCL IR 5 MG TAB (IMMEDIATE RELEASE) PO PRN (20:24)
[2024-06-03] MEDS ORDERED: IBUPROFEN 200 MG TAB PO PRN (20:24)
[2024-06-03 20:26] LABS: Thyroid Stimulating Hormone 2.891 uIu/ml (0.300-4.500)
[2024-06-03] MEDS: cefTRIAXone SODIUM 2,000 MG/50 ML BAG IV STA (20:33)
[2024-06-03] MEDS: NSS + 20MEQ KCL 20 MEQ/1,000 ML BAG IV STA (20:48)
[2024-06-03] MEDS: SODIUM CHLORIDE 0.9% 1,000 ML IV SCH (21:09)
[2024-06-03] MEDS: lamoTRIgine 25 MG TAB PO SCH (22:54)
[2024-06-03] MEDS: guaiFENesin 600 MG TABCR PO SCH (22:54)
[2024-06-03 23:32] LABS: Adenovirus F 40/41 PCR Not Detected (NotDetected); Astrovirus PCR Not Detected (NotDetected); Campylobacter PCR Not Detected (NotDetected); Cryptosporidium PCR Not Detected (NotDetected); Cyclospora cayetanensis PCR Not Detected (NotDetected); Entamoeba histolytica PCR Not Detected (NotDetected); Enteroaggregative E.coli(EAEC) Not Detected (NotDetected); Enteropathogenic E.coli (EPEC) Not Detected (NotDetected); Enterotoxigenic E.coli (ETEC) Not Detected (NotDetected); Giardia lamblia PCR Not Detected (NotDetected); Norovirus GI/GII PCR Not Detected (NotDetected); Plesiomonas shigelloides PCR Not Detected (NotDetected); Rotavirus A PCR Not Detected (NotDetected); Salmonella PCR Not Detected (NotDetected); Sapovirus PCR Not Detected (NotDetected); Shiga-like Toxin E.coli (STEC) Not Detected (NotDetected); Shigella/Enteroinvasive E.coli Not Detected (NotDetected); Vibrio cholerae PCR Not Detected (NotDetected); Vibrio species PCR Not Detected (NotDetected); Yersinia enterocolitica PCR Not Detected (NotDetected)
[2024-06-04] MEDS: NSS + 20MEQ KCL 20 MEQ/1,000 ML BAG IV ONE (01:21)
[2024-06-04] MEDS: ACETAMINOPHEN 325 MG TAB PO PRN (01:53)
--- OUTSIDE RECORDS SUMMARY | 2024-06-04 02:28 | External Medical Summary | Summary of Care ---
Author Name Unknown Organization [facility] Address [address] [place] [address] Phone [phone] Care Team Providers Care Analyst Business Analysis Name Role Phone Jayde Pedroza Primary Care Provider Reason for Visit * Reason Comments Acute Encounter Details Date Type Department Care Team (Late st Contact Info) Description 06/02/2024 10:00 AM EDT Telemedicine [address] [place] [id number] Bushra Glez PA-C [facility] [address] [place] [address] [phone] Viral illness* Allergies Active Allergy Reactions Criticality Noted Date Comments Pollen Other (Please comment) High 01/09/2015 Red eyes documented as of this encounter (statuses as of 06/02/2024) Medications Medication Sig Dispensed Refills Start Date End Date Status Breast Pump Electric bilateral pump 1 Each 06/29/2021 Active Additional Information Patient not taking.Reported on 06/02/2024 lamoTRIgine 25 MG Oral Tablet (LaMICtal) Take 2 Tablets by mouth in the morning. 05/19/2024 Active hydrOXYzine Pamoate 25 MG Oral Capsule (Vistaril) Take 1 Capsule by mouth. 04/19/2024 Active predniSONE 10 MG Oral Tablet (Deltasone)Indicati ons:Viral illness Take 5 tabs for 2 days, 4 tabs for 2 days, 3 tabs for 2 days, 2 tabs for 2 days 1 tab for 2 days 30 Tablet 06/02/2024 Active documented as of this encounter (statuses as of 06/02/2024) Active Problems Problem Noted Date Diagnosed Date Skin lesion 02/27/2024 Encounter for tubal ligation counseling 01/29/20 24 Streptococcus C 08/01/2023 Need for influenza vaccination 08/01/2023 Malaise and fatigue 09/20/2022 Polyarthralgia 09/20/2022 Amenorrhea 06/12/2022 Nausea without vomiting 06/12/2022 Gastroesophageal reflux disease without esophagi tis 06/12/2022 Paresthesia 06/12/2022 REMI (generalized anxiety disorder) 04/04/2022 PTSD (post-traumatic stress disorder) 04/04/2022 Major depressive disorder, recurrent, mild 03/20 Personal history of venous thrombosis and emboli sm 02/23/2021 documented as of this encounter (statuses as of 06/02/2024) Resolved Problems Problem Noted Date Diagnosed Date Resolved Date (normal spontaneous vaginal delivery) 09/21/2021 10/29/2021 Choroid plexus cysts, , affecting care of mother, antepartum 04/27/2021 08/08/2021 Last Assessment & Plan: Resolved. Maternal varicella, non-immune 03/23/2021 10/29/2021 High-risk , first trimester 03/01/2021 03/23/2021 Genetic screening 03/01/2021 08/23/2021 Overview: I reviewed cffDNA screening which resulted in low risk for aneuploidy on 02/23/21. Last Assessment & Plan: Reviewed information about cffDNA with the patient, explained conditions that are screened for. Those conditions are trisomy 21 (Down syndrome), trisomy 18, trisomy 13, syndrome, triploidy, and sex chromosome abnormalities such as monosomy X (Lemons syndrome), and sex chromosome trisomies (triple X, Klinefelters syndrome, XYY).The detection rate for these chromosome conditions range from 92-99%. Patient understands that it is a screening test and it is not diagnostic. A high risk result indicates that there is an increased suspicion for the chromosome abnormality listed, but it is not a diagnosis. Depression affecting 03/01/2021 10/29/2021 Overview: Patient reports she follows with a counselor for anxiety and depression. She discontinued medical marijuana upon discovery of . She reports a stable mood at this time and denies any recent signs/symptoms of depression, suicidal or homicidal ideations Last Assessment & Plan: Reviewed with patient that women with a history of anxiety/depression are at risk for recurrence both during and/or the period. Discussed with patient that anxiety/depression can and should be treated during when the benefits of treatment outweigh potential risks. 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 During that time she was more immobile as she had injury to her foot and was using crutches. She follows with hematology at [facility] and reports she completed full thrombophilia panel which was negative (we do not have these records for review). Patient is currently managed on prophylactic Lovenox 40 mg daily and was last evaluated by parcel post order clerk on 02/28/21. Last Assessment & Plan: Patient is currently managed on prophylactic Lovenox 40 mg daily and was last evaluated by parcel post order clerk on 02/28/21. We discussed the plan to follow growth serially. Routine child health exam documented as of this encounter (statuses as of 06/02/2024) Immunizations Name Administration Dates Next Due COVID-19 mRNA, LNP-s, No Pre serve, 2-Dose Series (Luminescent) 05/09/2021,04/10/2021 HPV Vaccine, 4-Valent 03/25/2009,07/06/2007,12/2006 Meningococcal Conjugate Vacc ine (Menactra/Menveo) 12/02/2011,05/06/2007 Seasonal Influenza, PF, 6 M & above, IM , (FluLaval or Fluzone) 08/01/2023,07/03/2022 TDAP (age 10 and older)(Boostrix) 06/22/2021,12/2013 TDAP, Age 7 and older, IM (Adacel) 05/06/2007 Varicella Vaccine (Chicken Pox) 03/25/2009 documented as of this encounter Social History Tobacco Use Types Packs/Day Years Used Date Smoking Tobacco: Never Smokeless Tobacco: Never Alcohol Use Standard Drinks/Week Comments Yes 0 (1 standard drink = 0.6 oz pur e alcohol) OCC. AUDIT-C Answer Date Recorded Frequency of Alcohol Consumption Monthly or less 2020 Average Number of Drinks Not on file 021 Frequency of Binge Drinking Not on file 10/31 PHQ-2 Answer Date Recorded PHQ-2 Score 2 10/26/2019 Hunger Vital Sign Answer Date Recorded Within the past 12 months, y ou worried that your food would run out before you got the money to buy more. Never true 01/20/20 24 Within the past 12 months, t he food you bought just didn't last and you didn't have money to get more. Never true 01/20/2024 [place] Depression Scale Answer Date Recorded [place] Depression Scale Total 9 10/29/2021 The thought of harming myself has occurred to me . Never 10/29/2021 Childcare Answer Date Recorded Do you feel overwhelmed with taking care of a child, family member or friend? No 01/20/2024 Does your family need help f inding childcare? (Household - for ages 0-17 years) Not on file 01/20/2024 Clothing Answer Date Recorded Have you been unable to get clothing when it was really needed? No 01/20/2024 Is your family able to get c lothes or diapers when needed? (Household - for ages 0-17 years) Not on file 01/20/2024 Personal Safety Answer Date Recorded Do you feel unsafe or have concerns for your saf ety? No 01/20/2024 Do you have concerns for you r family's safety? (Household - for ages 0-17 years) Not on file 01/20/2024 Utilities Answer Date Recorded Do you have trouble paying y our heating, water, or electric bill? No 01/20/2024 Is your family able to pay t he heat, water, or electric bill? (Household - for ages 0-17 years) Not on file 01/20/2024 Does your family have access to good internet? (Household - for ages 0-17 years) Not on file 01/20/2024 Employment Status Answer Date Recorded Are you unemployed or without regular income? No 01/20/2024 Does the household have a re gular source of income? (Household - for ages 0-17 years) Not on file 01/20/2024 Social Connections Answer Date Recorded How often do you feel lonely or isolated from those around you? Sometimes 01/20/2024 Financial Resource Strain Answer Date R ecorded Do you have any trouble payi ng for your medications, or do you think you might in the future? No 01/20/2024 Does your family have troubl e paying for medicine? (Household - for ages 0-17 years) Not on file 01/20/2024 Transportation Needs Answer Date Record ed READ ONLY Do you have troubl e getting a ride to medical visits or work? Never True 01/20/2024 Does your family have a hard time getting a ride to doctors visits? (Household - for ages 0-17 years) Not on file 01/20/2024 Has lack of transportation k ept you from medical appointments, meetings, work, or from getting things needed for daily living? Check all that apply. (Adult - for ages 18 years and over) Not on file 01/20/2024 Do you (or your family) have trouble finding or paying for a ride (transportation)? (Household - for ages 0-17 years) Not on file 01/20/2024 Housing Stability Answer Date Recorded Do you currently live in a s helter or have no steady place to sleep at night? No 01/20/2024 READ ONLY Do you think you a re at risk of becoming homeless? No 01/20/2024 Does your family worry about paying for your home or becoming homeless? (Household - for ages 0-17 years) Not on file 0 01/20/2024 Are you homeless or worried that you might be in the future? (Adult - for ages 18 years and over) Not on file Are you (or your family) smooth eless or worried that you might be in the future? (Household - for ages 0-17 years) Not on file Food Insecurity Answer Date Recorded Do you need food for this week? No 01/20/2024 Are you able to get enough f ood for your family? (Household - for ages 0-17 years) Not on file 01/20/2024 Does your family need food t his week? (Household - for ages 0-17 years) Not on file 01/20/2024 Do you always have enough fo od for your family? (Household - for ages 0-17 years) Not on file 01/20/2024 Sex and Gender Information Value Date Recorded Sex Assigned at Female 06/14/2021 5:03 PM EDT Gender Identity Female 06/14/2021 5:03 PM EDT Sexual Orientation Straight 06/14/2021 5: 03 PM EDT Job Start Date Occupation Industry Not on file Not on file Not on file documented as of this encounter Progress Notes * Bushra Glez PA-C - 06/02/2024 10:17 AM EDT Patient location: HOME. I was in a hospital or clinic location. After connecting through [email or web address],patient was verified with two unique identifiers. Patient (or authorized legal customer field representative) was then informed that this was a Telemedicine visit and being conducted confidentially over secure lines. Methods to assure confidentiality were taken. Patient acknowledged consent and understanding of pr ivacy and security of the Telemedicine visit. The patient agreed to participate. Nursing Notes: Janet Valerio CCMA 06/02/24 1012 Signed Chief Complaint Patient presents with Acute Pt is here through video today c/o body aches, chills, profuse sweating, headache, dizziness and tachycardia x 3-4 days. Pt used dayquil and nyquil and each time that is when the sweat is really bad.Covid test negative. Pt would like to add she took plan b a week ago. HPI: Lydia Messina is a 28 year old female presents with body aches, sweats, chills, fever of 101, headache, non-productive cough, dizziness, and heart racing x 5 days. Modest improvement with Day/Nyquil. Denies sinus symptoms, N/V/D. Appetite is down, but reports staying hydrated. Review of patient's allergies indicates: Allergen Reactions Pollen Other (Please comment) Red eyes Social History Tobacco Use Smoking status: Never Smokeless tobacco: Never Substance Use Topics Alcohol use: Yes Comment: OCC. Vaping/E-Cigarette Use Vaping/E-Cigarette Substances Vaping/E-Cigarette Devices OBJECTIVE: No vitals were taken for this telemedicine visit. Physical: General: Lydia appears in no acute distress ASSESSMENT/PLAN: Viral illness (Primary) - START if symptom worsen/fail to improve in 2 day predniSONE 10 MG Oral Tablet (Deltasone); Take 5 tabs for 2 days, 4 tabs for 2 days, 3 tabs for 2 days, 2 tabs for 2 days 1 tab for 2 days Follow Up: Return if symptoms worsen or fail to improve. Bushra Glez PA-C documented in this encounter Nursing Notes * Janet Valerio CCMA - 06/02/2024 10:07 AM EDT Chief Complaint Patient presents with Acute Pt is here through video today c/o body aches, chills, profuse sweating, headache, dizziness and tachycardia x 3-4 days. Pt used dayquil and nyquil and each time that is when the sweat is really bad.Covid test negative. Pt would like to add she took plan b a week ago. documented in this encounter Plan of Treatment Upcoming Encounters Date Type Department Care Team (Late st Contact Info) Description 10/11/2024 3:30 PM EST Office Visit Dermatology [facility] Clarke [address] [place] [address] Kirill Ball MD [address] [place] [address] 12/13/2024 10:00 AM EDT Office Visit Gynecology/Obstetrics Eleazar Blount [address] [place] [phone] Damaris Hdz PA-C [address] [place] [id number] Health Maintenance Due Date Last Done Comments HPV (Gardasil) Vaccine (3 - 2-dose series) 03/25/2009 03/25/2009, 07/06/2007, 05/06/2007 Hepatitis C Screening 11/21/2013 Depression Monitoring 10/26/2020 10/26/2019 COVID-19 Vaccine ( season) 2024 05/09/2021, 04/10/2021 Influenza Vaccine (FLU shot) (#1) 2024 08/01/2023, 07/03/2022 Pap Smear 11/27/2026 11/28/2023, 10/31, 10/26/2019, Additional history exists DTap/Tdap Vaccines (9 - Td or Tdap) 06/22/2031 06/22/2021, 02/03/2014, 05/06/2007, Additional history exists Hepatitis B Vaccine Completed 06/22/1996, 01/23/1996, 1995 MENINGOCOCCAL (MENACTRA/MENVEO) Completed 12/02/2011, 05/06/2007 Gonorrhea / Chlamydia Screen Discontinued 11/21/2022, 01/26/2021, 2020, Additional history exists Pneumococcal Vaccine: Pediatrics (0 to 5 Years) and At-Risk Patients (6 to 64 Years) Aged Out No longer eligible based on patient's age to complete this topic documented as of this encounter Medical Devices Not on filedocumented as of this encounter Visit Diagnoses Diagnosis Viral illness- Primary Unspecified viral infection, in conditions classified elsewhere and of unspecified site documented in this encounter Advance Directives * Full Code (Latest Code Status on File) Date Activated Date Inactivated Comments 09/21/2021 8:25 AM 09/23/2021 2:46 AM This order r eflects the patients wishes and were consensually agreed upon. Care Teams Analyst Business Analysis Relationship Specialty Start Date End Date Jayde Pedroza CRNP [address] [id number] PCP - General Nurse Practitioner 06/12/22 documented as of this encounter
--- OUTSIDE RECORDS SUMMARY | 2024-06-04 02:28 | External Medical Summary | Summary of Care ---
Author Name Unknown Organization [facility] Address [address] [place] [address] Phone [phone] Care Team Providers Care Cancer Program Consultant Name Role Phone Jayde Pedroza Primary Care Provider Reason for Referral * Evaluate & Treat - Unlimited Visits (Within 10 days (routine)) - Authorized Specialty Diagnoses / Procedures Referred By Laury donaldson Referred To Contact Dermatology Diagnoses Skin lesion Jayde Pedroza CRNP [address] [place] [address] Referral ID Status Reason Start Date Expiration Date Visits Requested Visits Authorized [id number] Authorized Specialty Services Required 02/27/2024 999 999 Question Answer Referral Priority Within 10 days (routine) Where should this appointment be scheduled? [facility] Are you referring the patient for Mohs Surgery and have a current positive skin cancer biopsy result? No What is the reason for the patient referral? Rash/Skin Check/Eval of Lesion or Mole Reason for Visit * Reason Comments Acute Patient presents in office today for a spot located on the back of her R inner thigh -- noticed a week ago. Encounter Details Date Type Department Care Team (Late st Contact Info) Description 02/27/2024 12:40 PM EDT Office Visit Family [facility] [address] [place] [address] Jayde Pedroza CRNP [address] [facility] [place] [address] Skin lesion* Allergies Active Allergy Reactions Criticality Noted Date Comments Pollen Other (Please comment) High 01/09/2015 Red eyes documented as of this encounter (statuses as of 02/27/2024) Medications Medication Sig Dispensed Refills Start Date End Date Status Breast Pump Electric bilateral pump 1 Each 06/29/2021 Active documented as of this encounter (statuses as of 02/27/2024) Active Problems Problem Noted Date Diagnosed Date Skin lesion 02/27/2024 Encounter for tubal ligation counseling 01/29/20 Streptococcus C 08/01/2023 Need for influenza vaccination 08/01/2023 Malaise and fatigue 09/20/2022 Polyarthralgia 09/20/2022 Amenorrhea 06/12/2022 Nausea without vomiting 06/12/2022 Gastroesophageal reflux disease without esophagi tis 06/12/2022 Paresthesia 06/12/2022 REMI (generalized anxiety disorder) 04/04/2022 PTSD (post-traumatic stress disorder) 04/04/2022 Major depressive disorder, recurrent, mild 03/20 Personal history of venous thrombosis and emboli sm 02/23/2021 documented as of this encounter (statuses as of 02/27/2024) Resolved Problems Problem Noted Date Diagnosed Date [...] using crutches. She follows with hematology at [facility] [place] and reports she completed full thrombophilia panel which was negative (we do not have these records for review). Patient is currently managed on prophylactic Lovenox 40 mg daily and was last evaluated by skein drier on 02/28/21. Last Assessment & Plan: Patient is currently managed on prophylactic Lovenox 40 mg daily and was last evaluated by skein drier on 02/28/21. We discussed the plan to follow growth serially. Routine child health exam documented as of this encounter (statuses as of 02/27/2024) Immunizations Name Administration Dates Next Due COVID-19 mRNA, LNP-s, No Pre serve, 2-Dose Series (Pfizer) 05/09/2021,04/10/2021 HPV Vaccine, 4-Valent 03/25/2009,07/06/2007,12/2006 Meningococcal Conjugate [...] money to get more. Never true 01/20/2024 [place] Depression Scale Answer Date Recorded [place] Depression Scale Total 9 10/29/2021 The thought [...] on file documented as of this encounter Last Filed Vital Signs Vital Sign Reading Time Taken Comments Blood Pressure 120/70 02/27/2024 12:11 PM EDT Pulse 73 02/27/2024 12:11 PM EDT Temperature - - Respiratory Rate 18 02/27/2024 12:11 PM EDT Oxygen Saturation 98% 02/27/2024 12:11 PM EDT Inhaled Oxygen Concentration - - Weight - - Height 165.1 cm (5' 5") 02/27/2024 12:11 PM EDT Body Mass Index - - documented in this encounter Progress Notes * Jayde Pedroza CRNP - 02/27/2024 12:09 PM EDT Images from the original note were not included. Acute Family Medicine Visit CC: SKIN LESION History of Present Illness: Lydia Messina is a 28 year old female presenting for complaints of skin lesion on posterior right leg. Present for 1 week, she did not notice in the past. Denies itching or pain. Sun exposure hx: moderate Mgm with hx of melanoma. 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 Drug use: Yes Types: Marijuana Comment: Medical marijuana Sexual activity: Yes Partners: Male control/protection: Rhythm Other Topics Concern Not on file Social History Narrative Lives with partner and child Social Determinants of Health Financial Resource Strain: Low Risk (01/20/2024) Financial Resource Strain Do you have any trouble paying for your medications, or do you think you might in the future? (Adult - for ages 18 years and over): No Does your family have trouble paying for medicine? (Household - for ages 0-17 years): Not on file Food Insecurity: No Food Insecurity (01/20/2024) Food Insecurity Do you need food for this week? (Adult - for ages 18 years and over): No Are you able to get enough food for your family? (Household - for ages 0-17 years): Not on file Does your family need food this week? (Household - for ages 0-17 years): Not on file Do you always have enough food for your family? (Household - for ages 0-17 years): Not on file Transportation Needs: No Transportation Needs (01/20/2024) Transportation Needs Do you have trouble getting a ride to medical visits or work? (Adult - for ages 18 years and over):Never True Does your family have a hard time getting a ride to doctors visits? (Household - for ages 0-17 years): Not on file Has lack of transportation kept you from medical appointments, meetings, work, or from getting things needed for daily living? Check all that apply. (Adult - for ages 18 years and over): Not on file Do you (or your family) have trouble finding or paying for a ride (transportation)? (Household - for ages 0-17 years): Not on file Social Connections: Socially Integrated (01/20/2024) Social Connections How often do you feel lonely or isolated from those around you? (Adult - for ages 18 years and over): Sometimes Housing Stability: Low Risk (01/20/2024) Housing Stability Do you currently live in a long-term or have no steady place to sleep at night? (Adult - for ages 18 years and over): No Do you think you are at risk of becoming homeless? (Adult - for ages 18 years and over): No Does your family worry about paying for your home or becoming homeless? (Household - for ages 0-17 years): Not on file Are you homeless or worried that you might be in the future? (Adult - for ages 18 years and over): Not on file Are you (or your family) homeless or worried that you might be in the future? (Household - for ages0-17 years): Not on file PMH: Past Medical History: Diagnosis Date Anxiety and depression currently in therapy 03/01/21 DVT (deep venous thrombosis) ([facility]) 07/16/2019 Dysplasia of cervix, low grade ([facility]) 2017 PE (pulmonary thromboembolism) ([facility]) 07/16/2019 Past Surgical History: Procedure Laterality Date COLPOSCOPY-CERV&ENDOCERV CURET 01/2018 [facility] 1 Current Outpatient Medications Medication Sig Dispense Refill Breast Pump Electric bilateral pump 1 Each 0 No current facility-administered medications for this visit. Review of patient's allergies indicates: Allergen Reactions Pollen Other (Please comment) Red eyes Most Recent Immunizations Administered Date(s) Administered COVID-19 mRNA, LNP-s, No Preserve, 2-Dose Series (MoPowered) 05/09/2021 DTP/HIB (Tetramune) 06/22/1996 DTaP - Dipth/Tet/Acell Pertussis (Infanrix), Peds 04/15/2001 Depo-Provera 10/07/2014 HPV Vaccine, 4-Valent 03/25/2009 Haemophilius B (HIB), unspecified 03/17/1997 Hepatitis B Vaccine 06/22/1996 IPV - Polio Virus Vaccine (Inact) 04/15/2001 MMR - Measles/Mumps/Rubella Vaccine 04/15/2001 Meningococcal Conjugate Vaccine (Menactra/Menveo) 12/02/2011 OPV - Polio Virus Vaccine (Oral) 06/22/1996 Seasonal Influenza, PF, 6 M & above, IM , (FluLaval or Fluzone) 08/01/2023 TDAP (age 10 and older)(Boostrix) 06/22/2021 TDAP, Age 7 and older, IM (Adacel) 05/06/2007 Varicella Vaccine (Chicken Pox) 03/25/2009 Review of Systems: Physical Exam: LMP 01/18/2024 Physical Exam HENT: Head: Normocephalic. Pulmonary: Effort: Pulmonary effort is normal. Skin: Comments: Right middle thigh with dark brown papule, regular shape with irregular color Neurological: General: No focal deficit present. Mental Status: She is alert and oriented to person, place, and time. Psychiatric: Mood and Affect: Mood normal. Behavior: Behavior normal. Thought Content: Thought content normal. Judgment: Judgment normal. Assessment and Plan: 1. Skin lesion IRREGULAR COLOR - MEDIAL RIGHT THIGH SHAPE IS REGULAR MONITOR - DERMATOLOGY REFERRAL OP I have advised the patient to call our office incase of any worsening or new symptoms. I spent a total of 20-29 minutes (exact time 20 mins) on the date of service in preparation, delivery, and documentation of the care provided to Lydia Messina excluding any time spent in the performance of separately billed services. Leonid, JAYDEN, QUE [facility] documented in this encounter Nursing Notes * Lizy Harp MED ASSIST - 02/27/2024 12:10 PM EDT The patient has been properly identified by confirmation of name and date of . Chief Complaint Patient presents with Acute Patient presents in office today for a spot located on the back of her R inner thigh -- noticed a week ago. documented in this encounter Plan of Treatment Upcoming Encounters Date Type Department Care Team (Latest Contact Info) Description 03/18/2024 7:40 AM EDT [facility] [place] [address] [address] [place] MD [address] [place] [address] 03/18/2024 7:40 AM EDT - 03/18/2024 8:56 AM EDT Surgery OR [facility], Operating Room [facility] [address] [place] [phone] Ct [place] MD [address] [place] [address] LAPAROSCOPIC OOPHORECTOMY AND OR SALPINGECTOMY 12/13/2024 10:00 AM EDT Office Visit Gynecology/Obstetr ics [facility] [address] [place] [address] aDmaris Hdz PA-C [address] [place] [address] Scheduled Procedures Name Priority Associated Diagnoses Date/Ti me LAPAROSCOPIC OOPHORECTOMY AND OR SALPINGECTOMY Encounter for tubal ligation counseling 03/18/2024 7:40 AM EDT Scheduled Referrals Name Type Priority Associated Diagnoses Orde r Schedule DERMATOLOGY REFERRAL OP Referral Within 10 days (routine) Skin lesion Ordered: 02/27/2024 Health Maintenance Due Date Last Done Comments Hepatitis C Screening 11/21/2013 Depression Monitoring 10/26/2020 10/26/2019 COVID-19 Vaccine ( season) 2023 05/09/2021, 04/10/2021 Pap Smear 11/27/2026 11/28/2023, 10/31, 10/26/2019, Additional history exists DTaP,Tdap,and Td Vaccines (9 - Td or Tdap) 06/22/2031 06/22/2021, 02/03/2014, 05/06/2007, Additional history exists Hepatitis B Completed 06/22/1996, 12/31, 1995 GARDASIL-HPV IMMUNIZATION SERIES Completed 03/25/2009, 07/06/2007, 05/06/2007 MENINGOCOCCAL (MENACTRA/MENVEO) Completed 12/02/2011, 05/06/2007 Gonorrhea / Chlamydia Screen Discontinued 11/21/2022, 01/26/2021, 2020, Additional history exists Influenza Vaccine (FLU shot) Completed 08/01/2023, 07/03/2022 Pneumococcal Vaccine: Pediatrics (0 to 5 Years) and At-Risk Patients (6 to 64 Years) Aged Out No longer eligible based on patient's age to complete this topic documented as of this encounter Medical Devices Not on filedocumented as of this encounter Visit Diagnoses Diagnosis Encounter for tubal ligation counseling- Primary Other general counseling and advice for contraceptive management Skin lesion- Primary Unspecified disorder of skin and subcutaneous tissue Encounter for tubal ligation counseling Other general counseling and advice for contraceptive management documented in this encounter Advance Directives * Full Code (Latest Code Status on File) Date Activated Date Inactivated Comments 09/21/2021 8:25 AM 09/23/2021 2:46 AM This order r eflects the patients wishes and were consensually agreed upon. Care Teams Cancer Program Consultant Relationship Specialty Start Date End Date Jayde Pedroza CRNP [address] [place] [address] PCP - General Nurse Practitioner 06/12/22 documented as of this encounter
--- OUTSIDE RECORDS SUMMARY | 2024-06-04 02:28 | External Medical Summary | Summary of Care ---
Author Name Unknown Organization [facility] Address [address] [facility] [place] [address] Phone [phone] Care Team Providers Care Wire Taper Name Role Phone Yovany Jayde Khadijah GREY Primary Care Provider Reason for Visit * Reason Onset Date Comments Surgery 03/16/2024 Encounter Details Date Type Department Care Team (Late st Contact Info) Description 03/16/2024 Telephone Gynecology/Obstetrics [facility] [address] [place] [address] [address] [place] MD [address] [place] [address] Surgery Allergies Active Allergy Reactions Criticality Noted Date Comments Pollen Other (Please comment) High 01/09/2015 Red eyes documented as of this encounter (statuses as of 03/16/2024) Medications Medication Sig Dispensed Refills Start Date End Date Status Breast Pump Electric bilateral pump 1 Each 06/29/2021 Active documented as of this encounter (statuses as of 03/16/2024) Active Problems Problem Noted Date Diagnosed Date [...] as of this encounter (statuses as of 03/16/2024) Resolved Problems Problem Noted Date Diagnosed Date [...] using crutches. She follows with hematology at [facility] and reports she completed full thrombophilia panel which was negative (we do not have these records for review). Patient is currently managed on prophylactic Lovenox 40 mg daily and was last evaluated by brainer on 02/28/21. Last Assessment & Plan: Patient is currently managed on prophylactic Lovenox 40 mg daily and was last evaluated by brainer on 02/28/21. We discussed the plan to follow growth serially. Routine child health exam documented as of this encounter (statuses as of 03/16/2024) Immunizations Name Administration Dates Next Due COVID-19 mRNA, LNP-s, No Pre serve, 2-Dose Series (Nanigans) 05/09/2021,04/10/2021 HPV Vaccine, 4-Valent 03/25/2009,07/06/2007,12/2006 Meningococcal Conjugate [...] money to get more. Never true 01/20/2024 [place] Depression Scale Answer Date Recorded [place] Depression Scale Total 9 10/29/2021 The thought [...] on file documented as of this encounter Miscellaneous Notes * Telephone Encounter - Tash Underwood OSA - 03/16/2024 8:13 AM EDT Pt canceled preop and po appt from the portal. Called to ask pt if she is canceling surgery. She said Yes, due to not knowing how the recovery would be with her daughter. Pt did not want to reschedule. Advised Claudia to cancel surgery for 03/18. documented in this encounter Plan of Treatment Upcoming Encounters Date Type Department Care Team (Latest Contact Info) Description 03/18/2024 9:30 AM EDT Hospital Encounter OR [facility], Operating Room [facility] [address] [place] [address] [address] Milan MD [address] [place] [address] 03/18/2024 9:30 AM EDT - 03/18/2024 10:31 AM EDT Surgery OR [facility], Operating Room [facility] [address] [place] [phone] [address] [place] MD [address] [place] [address] LAPAROSCOPIC OOPHORECTOMY AND OR SALPINGECTOMY 10/11/2024 3:30 PM EST Office Visit Dermatology [facility] Clarke [address] [place] [address] Kirill Ball MD [address] [place] [address] 12/13/2024 10:00 AM EDT Office Visit Gynecology/Obstetr ics Eleazar Blount [address] [place] [address] Damaris Hdz PA-C [address] [place] [address] Scheduled Procedures Name Priority Associated Diagnoses Date/Ti me LAPAROSCOPIC OOPHORECTOMY AND OR SALPINGECTOMY Encounter for tubal ligation counseling 03/18/2024 9:30 AM EDT Health Maintenance Due Date Last Done Comments Hepatitis C Screening 11/21/2013 Depression Monitoring 10/26/2020 10/26/2019 COVID-19 Vaccine ( season) 2023 05/09/2021, 04/10/2021 Influenza Vaccine (FLU shot) (#1) 2024 08/01/2023, 07/03/2022 Pap Smear 11/27/2026 11/28/2023, 10/31, 10/26/2019, Additional history exists DTaP,Tdap,and Td Vaccines (9 - Td or Tdap) 06/22/2031 06/22/2021, 02/03/2014, 05/06/2007, Additional history exists Hepatitis B Vaccine Completed 06/22/1996, 01/23/1996, 1995 HPV (Gardasil) Vaccine Completed 9, 07/06/2007, 05/06/2007 MENINGOCOCCAL (MENACTRA/MENVEO) Completed 12/02/2011, 05/06/2007 Gonorrhea / Chlamydia Screen Discontinued 11/21/2022, 01/26/2021, 2020, Additional history exists Pneumococcal Vaccine: Pediatrics (0 to 5 Years) and At-Risk Patients (6 to 64 Years) Aged Out No longer eligible based on patient's age to complete this topic documented as of this encounter Medical Devices Not on filedocumented as of this encounter Advance Directives * Full Code (Latest Code Status on File) Date Activated Date Inactivated Comments 09/21/2021 8:25 AM 09/23/2021 2:46 AM This order r eflects the patients wishes and were consensually agreed upon. Care Teams Wire Taper Relationship Specialty Start Date End Date Jayde Pedroza CRNP [address] [place] [address] PCP - General Nurse Practitioner 06/12/22 documented as of this encounter
--- OUTSIDE RECORDS SUMMARY | 2024-06-04 02:29 | External Medical Summary | Summary of Care ---
Author Name Unknown Organization [facility] Address [address] [place] [address] Phone [phone] Care Team Providers Care Auto Striper Name Role Phone Jayde Pedroza Khadijah GREY Primary Care Provider Encounter Details Date Type Department Care Team (Late st Contact Info) Description 02/03/2024 Orders Only Outcomes Research Department [address] [place] [address] Krysta Gee [facility] [employer] [facility] Other*[id number] Allergies Active Allergy Reactions Criticality Noted Date Comments Pollen Other (Please comment) High 01/09/2015 Red eyes documented as of this encounter (statuses as of 02/03/2024) Medications Medication Sig Dispensed Refills Start Date End Date Status Breast Pump Electric bilateral pump 1 Each 06/29/2021 Active documented as of this encounter (statuses as of 02/03/2024) Active Problems Problem Noted Date Diagnosed Date Encounter for tubal ligation counseling 01/29/20 24 [...] as of this encounter (statuses as of 02/03/2024) Resolved Problems Problem Noted Date Diagnosed Date [...] using crutches. She [facility] with hematology at [facility] and reports she completed full thrombophilia panel which was negative (we do not have these records for review). Patient is currently managed on prophylactic Lovenox 40 mg daily and was last evaluated by sliver lapper on 02/28/21. Last Assessment & Plan: Patient is currently managed on prophylactic Lovenox 40 mg daily and was last evaluated by sliver lapper on 02/28/21. We discussed the plan to follow growth serially. Routine child health exam documented as of this encounter (statuses as of 02/03/2024) Immunizations Name Administration Dates Next Due COVID-19 [...] money to get more. Never true 01/20/2024 [place] Depression Scale Answer Date Recorded [place] Depression Scale Total 9 10/29/2021 The thought of harming myself has occurred to me . Never 10/29/2021 Sex and Gender Information Value Date Recorded Sex Assigned at Female 06/14/2021 5:03 PM EDT Gender Identity Female 06/14/2021 5:03 PM EDT Sexual Orientation Straight 06/14/2021 5: 03 PM EDT Job Start Date Occupation Industry Not on file Not on file Not on file documented as of this encounter Plan of Treatment Upcoming Encounters Date Type Department Care Team (Latest Contact Info) Description 03/10/2024 9:15 AM EDT Office Visit Gynecology/Obstetr [facility] [address] [place] [address] [address] [place] MD [address] [place] [address] 03/18/2024 7:40 AM EDT Hospital Encounter OR [facility], Operating Room [facility] [address] [place] [address] [address] [place] MD [address] [place] [address] 03/18/2024 7:40 AM EDT - 03/18/2024 8:56 AM EDT Surgery OR [facility], Operating Room [facility] [address] [place] [phone] [address] [place] MD [address] [place] [address] LAPAROSCOPIC OOPHORECTOMY AND OR SALPINGECTOMY 04/07/2024 1:45 PM EDT Office Visit Gynecology/Obstetr [facility] [address] [place] [address] [address] [place] MD [address] [place] [address] 12/13/2024 10:00 AM EDT Office Visit Gynecology/Obstetr [facility] [address] [place] [address] Damaris Hdz PA-C [address] [place] [address] Scheduled Orders Name Type Priority Associated Diagnoses Orde r Schedule MYCODE INITIAL ADULT Lab Routine [employer] Research Other*[id number] Expected: 02/03/2024 (Approximate), Expires: 02/22/2025 Scheduled Procedures Name Priority Associated Diagnoses Date/Ti me LAPAROSCOPIC OOPHORECTOMY AND OR SALPINGECTOMY Encounter for tubal ligation counseling 03/18/2024 7:40 AM EDT Health Maintenance Due Date Last Done Comments Hepatitis C Screening 11/21/2013 COVID-19 Vaccine ( season) 2023 05/09/2021, 04/10/2021 [...] general counseling and advice for contraceptive management [employer] [facility] Other*[id number] Encounter for tubal ligation counseling Other general counseling and advice for contraceptive management documented in this encounter Advance Directives * Full Code (Latest Code Status on File) Date Activated Date Inactivated Comments 09/21/2021 8:25 AM 09/23/2021 2:46 AM This order r eflects the patients wishes and were consensually agreed upon. Care Teams Auto Striper Relationship Specialty Start Date End Date Jayde Pedroza CRNP [address] [place] [address] PCP - General Nurse Practitioner 06/12/22 documented as of this encounter
--- OUTSIDE RECORDS SUMMARY | 2024-06-04 02:29 | External Medical Summary | Summary of Care ---
Author Name Unknown Organization [facility] Address [address] [facility] [place] [address] Phone [phone] Care Team Providers Care Coil Winder Strap Name Role Phone Jayde Pedroza Khadijah GREY Primary Care Provider Reason for Visit * Reason Comments Card Puncher Return Encounter Details Date Type Department Care Team (Late st Contact Info) Description 01/29/2024 10:00 AM EDT Office Visit Gynecology/Obstetric s Eleazar Blount [address] [place] [address] [address] [place] MD [address] [place] [id number] Encounter for tubal ligation counseling* Allergies Active Allergy Reactions Criticality Noted Date Comments Pollen Other (Please comment) High 01/09/2015 Red eyes documented as of this encounter (statuses as of 01/29/2024) Medications Medication Sig Dispensed Refills Start Date End Date Status Breast Pump Electric bilateral pump 1 Each 06/29/2021 Active documented as of this encounter (statuses as of 01/29/2024) Active Problems Problem Noted Date Diagnosed Date [...] as of this encounter (statuses as of 01/29/2024) Resolved Problems Problem Noted Date Diagnosed Date [...] treatment outweigh potential risks. High-risk 02/23/2021 10/29/19 History of DVT (deep vein thrombosis) 02/23/2021 10/29/2021 Overview: Upon discussion with patient, she developed a DVT of left leg and a pulmonary embolism in 07/2019 while on nuvaring. During that time she was more immobile as she had injury to her foot and was using crutches. She follows with hematology at [facility] and reports she completed full thrombophilia panel which was negative (we do not have these records for review). Patient is currently managed on prophylactic Lovenox 40 mg daily and was last evaluated by hoop maker machine on 02/28/21. Last Assessment & Plan: Patient is currently managed on prophylactic Lovenox 40 mg daily and was last evaluated by hoop maker machine on 02/28/21. We discussed the plan to follow growth serially. Routine child health exam documented as of this encounter (statuses as of 01/29/2024) Immunizations Name Administration Dates Next Due COVID-19 mRNA, LNP-s, No Pre serve, 2-Dose Series ([employer]) 05/09/2021,04/10/2021 HPV Vaccine, 4-Valent 03/25/2009,07/06/2007,12/2006 Meningococcal Conjugate [...] money to get more. Never true 01/20/2024 Buffalo Depression Scale Answer Date Recorded [place] Depression Scale Total 9 10/29/2021 The thought [...] Sign Reading Time Taken Comments Blood Pressure 124/72 01/29/2024 10:07 AM EDT Pulse - - Temperature - - Respiratory Rate - - Oxygen Saturation - - Inhaled Oxygen Concentration - - Weight 79.4 kg (175 lb) 01/29/2024 10:07 AM EDT Height 165.1 cm (5' 5") 01/29/2024 10:07 AM EDT Body Mass Index 29.12 01/29/2024 10:07 AM EDT documented in this encounter Progress Notes * Ct [place] MD - 01/29/2024 10:11 AM EDT Patient Name: Lydia Messina Patient CC: Tubal ligation counseling Context: (HPI) 28 year old with LMP 01/18/2024 using rhythm method for contraception presents to discuss a tubal ligation. Patient reports a DVT and PE at age 21. Patient had a nuvaring and recent leg/foot surgery at that time. Patient was recommended to not use hormonal therapy because it could not be determined whetherDVT and PE was from immobility or hormonal contraception. Patient also reports Betzy IUD was attempted for contraception but she passed out of the table and was shaking and the IUD was removed. Patient reports she is allergic to copper and can not get a Paragard IUD. Patient's last anticoagulation treatment was 2 years ago when she was . No current anti-coagulation treatment. 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 Drug use: Yes Types: Marijuana Comment: Medical marijuana Sexual activity: Yes Partners: Male control/protection: Rhythm Social History Narrative Lives with partner and child Social Determinants of Health Food Insecurity: No Food Insecurity (01/20/2024) Hunger Vital Sign Worried About Running Out of Food in the Last Year: Never true Ran Out of Food in the Last Year: Never true Allergy: Review of patient's allergies indicates: Allergen Reactions Pollen Other (Please comment) Red eyes Family HX: Family History Problem Relation Name Age of Onset Asthma Mother Other (Other) Father DVT Asthma Grandmother (Maternal) Breast Cancer Grandmother (Maternal) No Known Problems Grandfather (Maternal) Coronary Artery disease Grandmother (Paternal) Asthma Grandmother (Paternal) Diabetes Grandfather (Paternal) Autism Brother (Half) ADD / ADHD Brother (Half) No Known Problems Daughter ROS: Constitutional: no weight loss, no weakness, and no fatigue Eyes: no worsening of vision ENT: no hearing loss, no congestion Resp: no cough, no sputum, no wheezing, and no SOB Cardiac: no chest pain, no orthopnea, and no dyspnea on exertion GI: no pain, no heartburn, no diarrhea, no constipation Musculoskeletal: no significant joint or muscle pain and no swelling Female : no dysuria, no abnormal vaginal bleeding, and no vaginal discharge Neuro: no memory loss and no weakness Psych: denies feeling down, depressed or hopeless in past month, denies being bothered by little interest or pleasure in doing things in past month, and no insomnia Heme: no fever, no chills, no sweats, and no bleeding/bruising Endo: no unplanned weight change Skin: no rash, no itching, and no new/changing skin lesions LABS: Results for orders placed or performed in visit on 11/28/23 HUMAN PAPILLOMA VIRUS, PROBE Result Value Ref Range Human Papilloma Virus Result Negative Not Applicable LABORATORY PHLEBOTOMIST PAP SCREEN Result Value Ref Range Final Diagnosis A. Cervix, SurePath Pap test: Adequacy: Satisfactory for evaluation; no transformation zone component identified. Interpretation: Negative for Intraepithelial lesion or malignancy ([place] System). AUTOMATED REVIEW: Focal Point computerized screening device (quintile 5, review). Performing Labs Emergency Room Clerk screening performed at [facility] ([place])[address] [address]. Gross Description A. Cervix. SurePath vial received labeled with the patient's identification. EDUCATIONAL NOTE: The Pap test (thin-layer cervical screening specimen) is a screening test that aids in the detection of cervical cancer and cancer precursors. Both false positive and false negativeresults can occur. The test should be used at regular intervals (as per the ASCCP guidelines) and positive results should be confirmed before definitive therapy. Discrepancies between the Pap test findings and clinical impressions should be resolved with diagnostic tests such as colposcopy and biopsy. Case Report Gynecologic Cytology Report Case: [id number] Authorizing Provider: Damaris Hdz PA-C Collected: 11/28/2023 09:53 AM Ordering Location: Gynecology/Obstetrics Received: 11/28/2023 09:[facility] Screen: Edson Warner CT(ASCP) Specimen: SurePath Pap test, Cervix PAP Indication for Procedure: Routine Pap PAP Previous Cancer: None HPV Permissions: HPV Regardless (Including cotest) PAP Contraceptive History: control pills PAP Menstrual Status: Pre-menopausal PHYSICAL EXAMINATION Well developed. Well nourishes white female in no acute distress Vital signs BP 124/72 | Ht 1.651 m (5' 5") | Wt 79.4 kg (175 lb) | LMP 01/18/2024 | BMI 29.12 kg/m | BSA 1.91m Constitutional: no acute distress Neurologic: grossly intact Extremity: No Cyanoses, clubbing or edema. No lesions on either extremeties Psych: Alert, awake and oriented X 3. Normal gait A/P: 28 yo who desires permanent sterilization. Patient with h/o DVT and PE and is not an ideal candidate for hormone therapy. Patient reports being allergic to copper and unable to use a Paragard IUD. I reviewed with the pt rbi of sterilization. This included how the procedure was performed. I reviewed the permanency of the procedure. I reviewed that she should desire no further children under any circumstance. I reviewed that there is a failure rate upto 2%. I reviewed that should a failure occur she is at increased risk for an ectopic that could be life threatening. I reviewed the risk of tubal regret. Women who underwent tubal sterilization before age 30 years were more likely to experience regret compared with those who underwent the procedure after age 30 years (12.6% vs 6.7%). I reviewed the other contraceptive options to include hormonal methods (ocp's, patch, nuvaring, injections). I reviewed barrier methods (foam, condoms, diaphragm). I reviewed IUD. I reviewed the risk of the procedure to include bleeding, infection, injury to other organs including bowel, bladder, ureters, muscle, nerves, blood vessels (any other organs or tissue in abdominal area and vaginal area), need for transfusion (include risks of transfusion reaction, hep C, hep B, and HIV), secondary operation to repair damage,risk of hysterectomy, risks of anesthesia, failure, anddeath. . Reviewed all the above with her. Plan for: dx lap and lap bilateral salpingectomy. Surgical case requested. RTC for pre-op appointment. All questions answered. Encounter for tubal ligation counseling (Primary) - STANDARD CASE REQUEST Follow Up: Return if symptoms worsen or fail to improve. Ct [place] MD 01/29/2024 10:23 AM Gynecology/Obstetrics [address] [address] documented in this encounter Nursing Notes * Milagros Bell LPN - 01/29/2024 10:07 AM EDT Here to discuss BTL documented in this encounter Plan of Treatment Upcoming Encounters Date Type Department Care Team (Late st Contact Info) Description 03/10/2024 9:15 AM EDT Office Visit Gynecology/Obstetrics [facility] [address] [place] [address] Ct [place] MD [address] [place] [address] 03/18/2024 Hospital Encounter OR [facility], Operating Room [facility] [address] [place] [address] Ct [place] MD [address] [place] [address] 04/07/2024 1:45 PM EDT Office Visit Gynecology/Obstetrics [facility] [address] [place] [address] Ct [place] MD [address] [place] [address] 12/13/2024 10:00 AM EDT Office Visit Gynecology/Obstetrics [facility] [address] [place] [address] Damaris Hdz PA-C [address] [place] [address] Scheduled Procedures Name Priority Associated Diagnoses Date/Ti me LAPAROSCOPIC OOPHORECTOMY AN D OR SALPINGECTOMY Encounter for tubal ligation counseling Health Maintenance Due Date Last Done Comments [...] general counseling and advice for contraceptive management Encounter for tubal ligation counseling- Primary Other general counseling and advice for contraceptive management documented in this encounter Advance Directives * Full Code (Latest Code Status on File) Date Activated Date Inactivated Comments 09/21/2021 8:25 AM 09/23/2021 2:46 AM This order r eflects the patients wishes and were consensually agreed upon. Care Teams Coil Winder Strap Relationship Specialty Start Date End Date Jayde Pedroza CRNP [facility] [place] [address] PCP - General Nurse Practitioner 06/12/22 documented as of this encounter
[2024-06-04] MEDS: LIDOCAINE 5% 1 PATCH TD SCH (02:40)
[2024-06-04] MEDS: KETOROLAC TROMETHAMINE 15 MG/ML VIAL IV ONE (02:40)
[2024-06-04] MEDS: DOXYCYCLINE HYCLATE 100 MG in DEXTROSE 5% MINI-B 100 ML IV STA (05:05)
[2024-06-04 07:02] LABS: Basophils # (auto) 0.03 K/uL (0.00-0.20); Basophils % (auto) 0.4 %; Eosinophils # (auto) 0.08 K/uL (0.00-0.50); Hematocrit (blood only) 31.6 % (37.0-47.0); Hemoglobin 10.9 g/dl (12.0-16.0); Immature Granulocytes # (auto) 0.03 K/uL (0.01-0.20); Immature Granulocytes % (auto) 0.4 %; Lymphocytes # (auto) 1.69 K/uL (1.20-3.40); Lymphocytes % (auto) 21.3 %; Mean Corpuscular Hemoglobin 30.2 pg (25.0-34.0); Mean Corpuscular Hgb Conc 34.5 g/dL (32.0-36.0); Mean Corpuscular Volume 87.5 fL (80.0-100.0); Mean Platelet Volume 11.1 fL (9.4-12.4); Monocytes # (auto) 1.32 K/uL (0.11-0.59); Monocytes % (auto) 16.6 %; Neutrophils % (auto) 60.3 %; Platelet Count 157 K/uL (130-400); RDW Coefficient of Variation 11.6 % (11.5-14.5); RDW Standard Deviation 37.4 fL (36.4-46.3); Red Blood Count 3.61 M/uL (4.20-5.40); White Blood Count 7.95 K/ul (4.8-10.8)
[2024-06-04 07:12] LABS: BUN Creatinine Ratio 10.9 (10-20); Calcium 7.8 mg/dl (8.6-10.3); Creatinine Clr Calc Pharmacy 142.6 ml/min; Potassium 4.1 mmol/L (3.5-5.1)
[2024-06-04 07:45] LABS: Estimated Average Glucose 105 mg/dl; Hemoglobin A1C 5.3 % (4.5-5.6)
[2024-06-04] MEDS: ENOXAPARIN INJ 40 MG/0.4 ML SYR SQ SCH (07:53)
[2024-06-04] MEDS ORDERED: AZITHROMYCIN 250 MG TAB PO SCH (09:00)
[2024-06-04] MEDS: SODIUM CHLORIDE 0.9% 1,000 ML IV SCH (11:15)
--- NOTE | 2024-06-04 13:07 | Hospitalist Progress Note ---
Date of Service June 04, 2024 Assessment & Plan (1) Sepsis: Plan: Secondary to community-acquired pneumonia Presented with 4 days history of bodyaches, chills, sweating, headache with dizziness CTA did not show any pulmonary embolism but it did showed extensive right lower lobe consolidation Started on intravenous ceftriaxone and doxycycline Cultures have been pending Still having occasional fever but clinically a little better Will continue current management Check hemoglobin A1c--5.3 Anxiety/mood disorder, stable Hyperglycemia ro DM (2) Pneumonia: (3) History of DVT (deep vein thrombosis): (4) History of pulmonary embolism: Plan: 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 Lovenox subcu Full code Admission and Anticipated Discharge Date Admission Date: June 03, 2024 Subjective 06/04/2024 The patient was seen and examined in medical telemetry unit She has been complaining of fever with chills at times Also has occasional nausea but no vomiting Has cough with minimal chest pain Review of Systems Review of Systems: all the systems reviewed and are unremarkable except as noted below Physical Exam Physical Exam: lying in bed without any acute distress Constitutional: well developed, well nourished, + ill appearing and + obese Eyes: PERRL, conjunctivae normal, anicteric sclerae ENMT: external ear and nose normal, oropharynx normal Neck: trachea midline, no thyromegaly Respiratory: no respiratory distress Auscultation: + diminished lung sounds and + crackles ( right basilar crackles) Cardiovascular: Rate/Rhythm: regular rate, regular rhythm and + tachycardic Heart Sounds: normal S1 and normal S2; no murmur Extremities: no edema Gastrointestinal (Abdomen): Inspection/Auscultation: normal bowel sounds; abdomen not distended Percussion/Palpation: abdomen soft; abdomen nontender Musculoskeletal: no acute arthritis involving any of the joint Neurologic: normal touch/pain/proprioception and moves all extremities; no focal motor deficits Psychiatric: A+Ox3, euthymic affect Lymphatic: no cervical or axillary lymphadenopathy Results & Data Results & Data Vital Signs (Past 12 Hours) Vital Signs Temp Pulse Pulse Resp BP Pulse Ox O2 Del Method 06/04/24 11:53 37.1 C 100 H 18 111/76 96 Room Air 06/04/24 09:05 Room Air 06/04/24 09:04 100 H 06/04/24 07:58 38 C H 128 H 16 98/65 L 95 Room Air 06/04/24 07:20 100 H 06/04/24 05:11 37.5 C 06/04/24 05:11 36.8 C 06/04/24 03:46 38 C H 06/04/24 02:49 39.4 C H 119 H 18 116/75 93 Room Air Laboratory Results Short CBC 06/03/24 06/04/24 Range/Units 13:38 06:13 WBC 12.09 H 7.95 (4.8-10.8) K/ul Hgb 14.1 10.9 L D (12.0-16.0) g/dl Hct 41.8 31.6 L (37.0-47.0) % Plt Count 202 157 (130-400) K/uL BMP 06/03/24 06/04/24 13:38 06:13 Sodium 134 L 139 Potassium 3.4 L 4.1 D Chloride 100 111 H Carbon Dioxide 26 23 BUN 11 7 Creatinine 0.83 0.64 Glucose 115 H 105 H Calcium 9.0 7.8 L Liver Function 06/03/24 Range/Units 13:38 Total Bilirubin 1.0 (0.2-1.0) mg/dl AST 34 (13-39) U/L ALT 72 H (7-52) U/L Alkaline Phosphatase 60 (34-104) U/L Albumin 4.3 (3.4-5.0) gm/dl Urine 06/03/24 Range/Units 14:34 Urine Color Yellow Urine Appearance Clear (Clear) Urine pH 6.0 (4.5-7.5) Ur Specific Maple 1.006 (1.000-1.030) Urine Protein Negative (Negative) Urine Glucose (UA) Negative (Negative) Medications Administered Current Inpatient Medications Acetaminophen (Acetaminophen 325 Mg Tab) 650 mg PO QID PRN PRN Reason: pain/fever Stop: 07/03/24 20:23 Last Admin: 06/04/24 07:52 Dose: 650 mg Doxycycline Hyclate (Doxycycline Hyclate 100 Mg Cap) 100 mg PO BID [facility] Stop: 06/11/24 20:59 Enoxaparin Sodium (Enoxaparin Inj 40 Mg/0.4 Ml Syr) 40 mg SQ QAM [facility] Stop: 07/04/24 08:59 Last Admin: 06/04/24 07:53 Dose: 40 mg Guaifenesin (Guaifenesin 600 Mg Tabcr) 600 mg PO Q12 [facility] Stop: 07/03/24 20:59 Last Admin: 06/04/24 07:53 Dose: 600 mg Hydroxyzine HCl (Hydroxyzine Hcl 25 Mg Tab) 25 mg PO QID PRN PRN Reason: Anxiety Stop: 07/03/24 20:23 Promethazine HCl (Phenergan) 12.5 mg in 50.5 mls @ 202 mls/hr IV Q6H PRN PRN Reason: Nausea And Vomiting Stop: 07/03/24 20:23 Ceftriaxone Sodium (Rocephin) 2,000 mg in 50 mls @ 100 mls/hr IV Q24H [facility] Stop: 06/11/24 20:59 Sodium Chloride (Nss) 1,000 mls @ 125 mls/hr IV .Q8H [facility] Stop: 06/05/24 10:14 Last Admin: 06/04/24 11:15 Dose: 125 mls/hr Ibuprofen (Ibuprofen 200 Mg Tab) 200 mg PO Q6H PRN PRN Reason: pain not relieved by tylenol Stop: 07/03/24 20:23 Lamotrigine (Lamotrigine 25 Mg Tab) 50 mg PO [facility]; Protocol Stop: 07/03/24 20:59 Last Admin: 06/03/24 22:54 Dose: 50 mg Lidocaine (Lidocaine 5% 1 Patch) 1 patch TD [facility] Stop: 07/04/24 02:09 Last Admin: 06/04/24 02:40 Dose: 1 patch Miscellaneous (Remove Lidoderm Patch) 1 each N/A DAILY@2100 [facility] Stop: 07/05/24 20:59 Miscellaneous (Remove Lidoderm Patch) 1 each N/A TODAY@1430 [facility] Stop: 06/04/24 14:31 (2) Pneumonia Laterality: right Lung location: lower lobe of lung Pneumonia type: due to unspecified organism Qualified Code(s): J18.9 - Pneumonia, unspecified organism
[2024-06-04] MEDS: DOXYCYCLINE HYCLATE 100 MG CAP PO SCH (20:13)
[2024-06-04] MEDS: cefTRIAXone SODIUM 2,000 MG/50 ML BAG IV SCH (20:14)
[2024-06-05 08:03] LABS: Basophils # (auto) 0.03 K/uL (0.00-0.20); Basophils % (auto) 0.4 %; Eosinophils # (auto) 0.16 K/uL (0.00-0.50); Eosinophils % (auto) 2.1 %; Hematocrit (blood only) 32.1 % (37.0-47.0); Hemoglobin 11.4 g/dl (12.0-16.0); Immature Granulocytes # (auto) 0.04 K/uL (0.01-0.20); Immature Granulocytes % (auto) 0.5 %; Lymphocytes # (auto) 1.32 K/uL (1.20-3.40); Lymphocytes % (auto) 17.7 %; Mean Corpuscular Hemoglobin 30.9 pg (25.0-34.0); Mean Corpuscular Hgb Conc 35.5 g/dL (32.0-36.0); Mean Platelet Volume 11.4 fL (9.4-12.4); Monocytes # (auto) 0.97 K/uL (0.11-0.59); Neutrophils # (auto) 4.93 K/uL (1.40-6.50); Neutrophils % (auto) 66.3 %; Platelet Count 207 K/uL (130-400); RDW Coefficient of Variation 11.6 % (11.5-14.5); RDW Standard Deviation 37.3 fL (36.4-46.3); Red Blood Count 3.69 M/uL (4.20-5.40); White Blood Count 7.45 K/ul (4.8-10.8)
[2024-06-05 08:56] LABS: Calcium 8.3 mg/dl (8.6-10.3); Magnesium 1.9 mg/dl (1.7-2.4)
[2024-06-05 09:02] LABS: BUN Creatinine Ratio 10.8 (10-20); Creatinine Clr Calc Pharmacy 140.4 ml/min; Phosphorus 2.5 mg/dl (2.5-4.9)
--- NOTE | 2024-06-05 13:45 | Hospitalist Progress Note ---
Date of Service June 05, 2024 Assessment & Plan (1) Sepsis: Plan: Secondary to community-acquired pneumonia Presented with 4 days history of bodyaches, chills, sweating, headache with dizziness CTA did not show any pulmonary embolism but it did showed extensive right lower lobe consolidation Started on intravenous ceftriaxone and doxycycline Cultures have been pending Still having occasional fever but clinically a little better Will continue current management Check hemoglobin A1c--5.3 No more fever and/or chills and is still has little sweating Clinically much better with decreasing respiratory symptoms Will continue current management Anxiety/mood disorder, stable Hyperglycemia ro DM (2) Pneumonia: (3) History of DVT (deep vein thrombosis): (4) History of pulmonary embolism: Plan: 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 Lovenox subcu Full code Admission and Anticipated Discharge Date Admission Date: June 03, 2024 Subjective 06/04/2024 The patient was seen and examined in medical telemetry unit She has been complaining of fever with chills at times Also has occasional nausea but no vomiting Has cough with minimal chest pain 06/05/2024 The patient was seen and examined in medical telemetry unit She has been feeling little bit better today Still has sweating but does not have any more fever and/or chills Her cough and shortness of breath have improved Review of Systems Review of Systems: all the systems reviewed and are unremarkable except as noted below Physical Exam Physical Exam: lying in bed without any acute distress Constitutional: well developed, well nourished, + ill appearing and + obese Eyes: PERRL, conjunctivae normal, anicteric sclerae ENMT: external ear and nose normal, oropharynx normal Neck: trachea midline, no thyromegaly Respiratory: no respiratory distress Auscultation: + diminished lung sounds and + crackles ( right basilar crackles) Cardiovascular: Rate/Rhythm: regular rate, regular rhythm and + tachycardic Heart Sounds: normal S1 and normal S2; no murmur Extremities: no edema Gastrointestinal (Abdomen): Inspection/Auscultation: normal bowel sounds; abdomen not distended Percussion/Palpation: abdomen soft; abdomen nontender Neurologic: normal touch/pain/proprioception and moves all extremities; no focal motor deficits Psychiatric: A+Ox3, euthymic affect Lymphatic: no cervical or axillary lymphadenopathy Results & Data Results & Data Vital Signs (Past 12 Hours) Vital Signs Temp Pulse Pulse Resp BP Pulse Ox O2 Del Method 06/05/24 12:06 36.7 C 89 16 94/63 L 95 Room Air 06/05/24 08:07 37.6 C H 60 16 112/80 16 L Room Air 06/05/24 07:44 Room Air 06/05/24 07:29 99 H 06/05/24 02:33 37 C 95 H 16 125/85 97 Room Air Laboratory Results Short CBC 06/05/24 Range/Units 06:56 WBC 7.45 (4.8-10.8) K/ul Hgb 11.4 L (12.0-16.0) g/dl Hct 32.1 L (37.0-47.0) % Plt Count 207 (130-400) K/uL BMP 06/05/24 06:56 Sodium 136 Potassium 4.0 Chloride 109 H Carbon Dioxide 22 BUN 7 Creatinine 0.65 Glucose 93 Calcium 8.3 L Medications Administered Current Inpatient Medications Acetaminophen (Acetaminophen 325 Mg Tab) 650 mg PO QID PRN PRN Reason: pain/fever Stop: 07/03/24 20:23 Last Admin: 06/05/24 07:37 Dose: 650 mg Doxycycline Hyclate (Doxycycline Hyclate 100 Mg Cap) 100 mg PO BID [facility] Stop: 06/11/24 20:59 Last Admin: 06/05/24 07:38 Dose: 100 mg Enoxaparin Sodium (Enoxaparin Inj 40 Mg/0.4 Ml Syr) 40 mg SQ QAM [facility] Stop: 07/04/24 08:59 Last Admin: 06/05/24 07:38 Dose: 40 mg Guaifenesin (Guaifenesin 600 Mg Tabcr) 600 mg PO Q12 [facility] Stop: 07/03/24 20:59 Last Admin: 06/05/24 07:38 Dose: 600 mg Hydroxyzine HCl (Hydroxyzine Hcl 25 Mg Tab) 25 mg PO QID PRN PRN Reason: Anxiety Stop: 07/03/24 20:23 Promethazine HCl (Phenergan) 12.5 mg in 50.5 mls @ 202 mls/hr IV Q6H PRN PRN Reason: Nausea And Vomiting Stop: 07/03/24 20:23 Ceftriaxone Sodium (Rocephin) 2,000 mg in 50 mls @ 100 mls/hr IV Q24H [facility] Stop: 06/11/24 20:59 Last Infusion: 06/04/24 20:45 Dose: Infused Ibuprofen (Ibuprofen 200 Mg Tab) 200 mg PO Q6H PRN PRN Reason: pain not relieved by tylenol Stop: 07/03/24 20:23 Lamotrigine (Lamotrigine 25 Mg Tab) 50 mg PO [facility]; Protocol Stop: 07/03/24 20:59 Last Admin: 06/04/24 20:13 Dose: 50 mg Lidocaine (Lidocaine 5% 1 Patch) 1 patch TD [facility] Stop: 07/04/24 02:09 Last Admin: 06/04/24 21:21 Dose: 1 patch Miscellaneous (Remove Lidoderm Patch) 1 each N/A DAILY@2100 [facility] Stop: 07/05/24 20:59 (2) Pneumonia Laterality: right Lung location: lower lobe of lung Pneumonia type: due to unspecified organism Qualified Code(s): J18.9 - Pneumonia, unspecified organism
--- NOTE | 2024-06-06 12:33 | Hospitalist Progress Note ---
Date of Service June 06, 2024 Assessment & Plan (1) Sepsis: Plan: Secondary to community-acquired pneumonia Presented with 4 days history of bodyaches, chills, sweating, headache with dizziness CTA did not show any pulmonary embolism but it did showed extensive right lower lobe consolidation Started on intravenous ceftriaxone and doxycycline Cultures have been pending Still having occasional fever but clinically a little better Will continue current management Check hemoglobin A1c--5.3 No more fever and/or chills and is still has little sweating Clinically much better with decreasing respiratory symptoms Will continue current management Anxiety/mood disorder, stable Hyperglycemia ro DM (2) Pneumonia: (3) History of DVT (deep vein thrombosis): (4) History of pulmonary embolism: Plan: 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 Admission and Anticipated Discharge Date Admission Date: June 03, 2024 Subjective 06/04/2024 The patient was seen and examined in medical telemetry unit She has been complaining of fever with chills at times Also has occasional nausea but no vomiting Has cough with minimal chest pain 06/05/2024 The patient was seen and examined in medical telemetry unit She has been feeling little bit better today Still has sweating but does not have any more fever and/or chills Her cough and shortness of breath have improved 06/06/2024 The patient was seen and examined in medical telemetry unit She remains generally weak and is still have some swelling No cough, chest pain or shortness of breath with exertion Still having sweating Review of Systems Review of Systems: all the systems reviewed and are unremarkable except as noted below Physical Exam Physical Exam: lying in bed without any acute distress Constitutional: well developed, well nourished, + ill appearing and + obese Eyes: PERRL, conjunctivae normal, anicteric sclerae ENMT: external ear and nose normal, oropharynx normal Neck: trachea midline, no thyromegaly Respiratory: no respiratory distress Auscultation: + crackles ( Minimal right basilar crackles) Cardiovascular: Rate/Rhythm: regular rate, regular rhythm and + tachycardic Heart Sounds: normal S1 and normal S2; no murmur Extremities: no edema Gastrointestinal (Abdomen): Inspection/Auscultation: normal bowel sounds; abdomen not distended Percussion/Palpation: abdomen soft; abdomen nontender Neurologic: normal touch/pain/proprioception and moves all extremities; no focal motor deficits Psychiatric: A+Ox3, euthymic affect Lymphatic: no cervical or axillary lymphadenopathy Results & Data Results & Data Vital Signs (Past 12 Hours) Vital Signs Temp Pulse Pulse Resp BP BP Pulse Ox 06/06/24 11:28 36.8 C 78 14 109/71 96 06/06/24 08:03 06/06/24 07:28 36.5 C 74 16 100/64 95 06/06/24 07:03 73 06/06/24 04:48 36.8 C 77 18 96/63 L 97 06/06/24 04:11 82 06/06/24 00:55 36.9 C 77 18 106/71 95 O2 Del Method 06/06/24 11:28 Room Air 06/06/24 08:03 Room Air 06/06/24 07:28 Room Air 06/06/24 07:03 06/06/24 04:48 Room Air 06/06/24 04:11 06/06/24 00:55 Room Air (2) Pneumonia Laterality: right Lung location: lower lobe of lung Pneumonia type: due to unspecified organism Qualified Code(s): J18.9 - Pneumonia, unspecified organism
--- NOTE | 2024-06-06 12:43 | Hospitalist Progress Note ---
Date of Service June 06, 2024 Assessment & Plan (1) Sepsis: Plan: Secondary to community-acquired pneumonia Presented with 4 days history of bodyaches, chills, sweating, headache with dizziness CTA did not show any pulmonary embolism but it did showed extensive right lower lobe consolidation Started on intravenous ceftriaxone and doxycycline Cultures have been pending Still having occasional fever but clinically a little better Will continue current management Check hemoglobin A1c--5.3 No more fever and/or chills and is still has little sweating Clinically much better with decreasing respiratory symptoms Clinically much better but is still having some weakness and sweating No fever and/or chills, no cough and no shortness of breath with activities Will get PT OT evaluation and possible discharge tomorrow on oral antibiotic to finish the course of 10 days in total Anxiety/mood disorder, stable Hyperglycemia ro DM (2) Pneumonia: Plan: As above (3) History of DVT (deep vein thrombosis): (4) History of pulmonary embolism: Plan: 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 Lovenox subcu Full code Admission and Anticipated Discharge Date Admission Date: June 03, 2024 Subjective 06/04/2024 The patient was seen and examined in medical telemetry unit She has been complaining of fever with chills at times Also has occasional nausea but no vomiting Has cough with minimal chest pain 06/05/2024 The patient was seen and examined in medical telemetry unit She has been feeling little bit better today Still has sweating but does not have any more fever and/or chills Her cough and shortness of breath have improved 06/06/2024 The patient was seen and examined in medical telemetry unit She remains generally weak and is still have some swelling No cough, chest pain or shortness of breath with exertion Still having sweating Review of Systems Review of Systems: all the systems reviewed and are unremarkable except as noted below Physical Exam Physical Exam: lying in bed without any acute distress Constitutional: well developed, well nourished, + ill appearing and + obese Eyes: PERRL, conjunctivae normal, anicteric sclerae ENMT: external ear and nose normal, oropharynx normal Neck: trachea midline, no thyromegaly Respiratory: no respiratory distress Auscultation: + crackles ( Minimal right basilar crackles) Cardiovascular: Rate/Rhythm: regular rate, regular rhythm and + tachycardic Heart Sounds: normal S1 and normal S2; no murmur Extremities: no edema Gastrointestinal (Abdomen): Inspection/Auscultation: normal bowel sounds; abdomen not distended Percussion/Palpation: abdomen soft; abdomen nontender Neurologic: normal touch/pain/proprioception and moves all extremities; no focal motor deficits Psychiatric: A+Ox3, euthymic affect Lymphatic: no cervical or axillary lymphadenopathy Results & Data Results & Data Vital Signs (Past 12 Hours) Vital Signs Temp Pulse Pulse Resp BP BP Pulse Ox 06/06/24 11:28 36.8 C 78 14 109/71 96 06/06/24 08:03 06/06/24 07:28 36.5 C 74 16 100/64 95 06/06/24 07:03 73 06/06/24 04:48 36.8 C 77 18 96/63 L 97 06/06/24 04:11 82 06/06/24 00:55 36.9 C 77 18 106/71 95 O2 Del Method 06/06/24 11:28 Room Air 06/06/24 08:03 Room Air 06/06/24 07:28 Room Air 06/06/24 07:03 06/06/24 04:48 Room Air 06/06/24 04:11 06/06/24 00:55 Room Air Medications Administered Current Inpatient Medications Acetaminophen (Acetaminophen 325 Mg Tab) 650 mg PO QID PRN PRN Reason: pain/fever Stop: 07/03/24 20:23 Last Admin: 06/05/24 07:37 Dose: 650 mg Doxycycline Hyclate (Doxycycline Hyclate 100 Mg Cap) 100 mg PO BID MELECIO Stop: 06/11/24 20:59 Last Admin: 06/06/24 07:40 Dose: 100 mg Enoxaparin Sodium (Enoxaparin Inj 40 Mg/0.4 Ml Syr) 40 mg SQ QAM MELECIO Stop: 07/04/24 08:59 Last Admin: 06/06/24 07:40 Dose: 40 mg Guaifenesin (Guaifenesin 600 Mg Tabcr) 600 mg PO Q12 MELECIO Stop: 07/03/24 20:59 Last Admin: 06/06/24 07:40 Dose: 600 mg Hydroxyzine HCl (Hydroxyzine Hcl 25 Mg Tab) 25 mg PO QID PRN PRN Reason: Anxiety Stop: 07/03/24 20:23 Promethazine HCl (Phenergan) 12.5 mg in 50.5 mls @ 202 mls/hr IV Q6H PRN PRN Reason: Nausea And Vomiting Stop: 07/03/24 20:23 Ceftriaxone Sodium (Rocephin) 2,000 mg in 50 mls @ 100 mls/hr IV Q24H [facility] Stop: 06/11/24 20:59 Last Infusion: 06/05/24 22:58 Dose: Infused Ibuprofen (Ibuprofen 200 Mg Tab) 200 mg PO Q6H PRN PRN Reason: pain not relieved by tylenol Stop: 07/03/24 20:23 Lamotrigine (Lamotrigine 25 Mg Tab) 50 mg PO [facility]; Protocol Stop: 07/03/24 20:59 Last Admin: 06/05/24 20:45 Dose: 50 mg Lidocaine (Lidocaine 5% 1 Patch) 1 patch TD [facility] Stop: 07/04/24 02:09 Last Admin: 06/05/24 20:48 Dose: 1 patch Miscellaneous (Remove Lidoderm Patch) 1 each N/A DAILY@2100 [facility] Stop: 07/05/24 20:59 Last Admin: 06/05/24 20:46 Dose: 1 each (2) Pneumonia Laterality: right Lung location: lower lobe of lung Pneumonia type: due to unspecified organism Qualified Code(s): J18.9 - Pneumonia, unspecified organism
[2024-06-07 07:36] LABS: Basophils # (auto) 0.04 K/uL (0.00-0.20); Basophils % (auto) 0.7 %; Eosinophils # (auto) 0.31 K/uL (0.00-0.50); Eosinophils % (auto) 5.2 %; Hematocrit (blood only) 37.1 % (37.0-47.0); Hemoglobin 12.6 g/dl (12.0-16.0); Immature Granulocytes # (auto) 0.06 K/uL (0.01-0.20); Lymphocytes # (auto) 1.86 K/uL (1.20-3.40); Lymphocytes % (auto) 31.5 %; Mean Corpuscular Hemoglobin 30.1 pg (25.0-34.0); Mean Corpuscular Volume 88.5 fL (80.0-100.0); Mean Platelet Volume 10.7 fL (9.4-12.4); Monocytes # (auto) 0.57 K/uL (0.11-0.59); Monocytes % (auto) 9.6 %; Neutrophils # (auto) 3.07 K/uL (1.40-6.50); Platelet Count 324 K/uL (130-400); RDW Coefficient of Variation 11.3 % (11.5-14.5); RDW Standard Deviation 36.4 fL (36.4-46.3); Red Blood Count 4.19 M/uL (4.20-5.40); White Blood Count 5.91 K/ul (4.8-10.8)
[2024-06-07 07:44] VITALS: PULSE 80; RESP 16; TEMP 97.7; O2SAT 95
[2024-06-07 07:46] LABS: BUN Creatinine Ratio 17.4 (10-20); Calcium 8.9 mg/dl (8.6-10.3); Creatinine Clr Calc Pharmacy 134.4 ml/min; Potassium 4.2 mmol/L (3.5-5.1)
--- NOTE | 2024-06-07 08:51 | Discharge Summary ---
Discharge Summary Date of Service June 07, 2024 Principal Dx & Hospital Course #1 = Principal Diagnosis (1) Sepsis: (2) Pneumonia: Plan Patient is a 28-year-old female presented to the emergency room with body aches and chills and dizziness. She was also having some pleuritic chest pain and cough. In the emergency room was noted to have a pneumonia. Patient was cared for in the hospital. She was given initially IV antibiotics. She was given antitussives and mucolytics. Through the course of her hospitalization she steadily improved. Her fevers resolved. Her laboratory studies stabilized. She was not requiring any additional supplemental oxygen. On the day of discharge she is up and ambulatory to the bathroom. The majority of her constitutional symptoms have significantly improved. She be transition to oral antibiotics and discharged home to continue her recovery there. Notes For Next Care Provider Medication Changes From Visit Doxycycline and Omnicef for pneumonia Admission HPI Per Admitting Provider History obtained from patient and records. Medical history significant for history of provoked PE/DVT secondary to hormonal Rx status post anticoagulation, GERD, cervical dysplasia, anxiety/mood disorder. 4 days history of bodyaches, chills, sweating headache and dizziness symptoms. Heartbeat fast at home. Cough symptoms which patient is not able to expectorate fully. Pleuritic right-sided chest pain. Denies aspiration. Possible sick contacts at home. Loose stools noted at home. Amoxicillin and Z-Panda administered at the ER. 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 Lungs: Clear to auscultation, decreased, no wheezes rales or rhonchi CV: S1-S2, regular Abdomen: Soft, nontender, nondistended Extremities: No significant edema Neuro: No focal deficits Psych: Cooperative, normal mood Updated Medication List Medication Instructions Recorded Confirmed Type lamotrigine 25 mg tablet 50 mg PO DAILY 06/03/24 06/03/24 History prednisone 10 mg tablet 10 mg PO UD 06/03/24 06/03/24 History cefdinir 300 mg capsule 300 mg PO BID 3 days #6 caps 10/07/24 Rx doxycycline hyclate 100 mg capsule 100 mg PO BID 3 days #6 caps 06/07/24 Rx Hospital Stay Data Consultations 06/03/24 19:37 ED Decision to Admit Stat Diagnostic Imagining Performed 06/03/24 15:08 CT Abd and Pelvis [CT abd pelvis IV con only] Stat 06/03/24 15:20 CT for pulmonary embolism PE [CT angio chest PE protocol] Stat Reviewed imaging, laboratory and diagnostic studies. Pertinent findings as below. WBCs 5.9 Electrolytes within normal range CTA of the chest was negative for PE, extensive right lower lobe consolidation with reactive hilar lymph nodes. Pending Results Patient Have Any Pending Studies at Discharge: No Discharge Instructions Given to Patient (Per Discharging Provider) Complete course of antibiotics Total Time Total Time Spent Total Time Spent (In Minutes): 22
[2024-06-07 09:47] VITALS: BP 110/74
== END 2024-06-07 13:16 | disposition home or self-care (01) | DRG 871 ==
LOC: ED 13:25 → SUATTDRO 19:50 → 2N 19:50